=== PATIENT | female | born 1970 | race African-American/Black ===

== ENCOUNTER 2018-04-04 11:40 | Inpatient (IN) | payer MEDICARE, MEDICAID ==
[~2018-04-04] VITALS: Ht 165.1 cm; Wt 87.5 kg
[2018-04-04 14:30] VITALS: BP 153/109
[2018-04-04] MEDS ORDERED: ENTRESTO 24 MG1 EACH PO (17:07)
[2018-04-04] MEDS ORDERED: CARVEDILOL25 MG ORAL (17:07)
[2018-04-04] MEDS ORDERED: AMLODIPINE BESY10 MG ORAL (17:07)
--- NOTE | 2018-04-04 17:43 | History & Physical ---
History and Physical History & Physicial Dictated for Int Med-Dr Arceo no. [id number]. Be Morfin MD Apr 04, 2018 17:43
[2018-04-04] MEDS ORDERED: Flu Vaccine Quadrivalent 0.5ml IM ONE (18:00)
[2018-04-04] MEDS ORDERED: Albuterol ud Inhalation HHN PRN (18:00)
[2018-04-04] MEDS ORDERED: Pneumococcal Vaccine 25mcg/0.5ml IM ONE (18:00)
[2018-04-04] MEDS ORDERED: NS w/KCl 20mEq 1,000 ML IV SCH (18:53)
[2018-04-04] MEDS: Morphine Sulfate 4mg/ml Inj (IV USE ONLY) IVP PRN (18:56)
[2018-04-04] MEDS ORDERED: Azithromycin 500 MG in D5W 275 ML IV SCH (19:00)
[2018-04-04 19:36] LABS: BASOPHILS % (AUTO) 0.7 % (0.0-2.0); EOSINOPHILS % (AUTO) 1.6 % (0.0-3.0); HEMATOCRIT 31.7 % (37.0-47.0); HEMOGLOBIN 9.5 G/DL (12.0-16.0); LYMPHOCYTES % (AUTO) 21.5 % (20.0-45.0); MEAN CORPUSCULAR VOLUME 84 FL (80-99); MONOCYTES % (AUTO) 10.7 % (1.0-10.0); NEUTROPHILS % (AUTO) 65.5 % (45.0-75.0); PLATELET COUNT 194 K/UL (150-450); RED BLOOD COUNT 3.78 M/UL (4.20-5.40); RED CELL DISTRIBUTION WIDTH 16.8 % (11.6-14.8); WHITE BLOOD COUNT 5.2 K/UL (4.8-10.8)
[2018-04-04 20:11] LABS: ALANINE AMINOTRANSFERASE 35 U/L (12-78); ALBUMIN 2.6 G/DL (3.4-5.0); ALBUMIN/GLOBULIN RATIO 0.6 (1.0-2.7); ALKALINE PHOSPHATASE 89 U/L (46-116); ANION GAP 8 mmol/L (5-15); ASPARTATE AMINO TRANSFERASE 46 U/L (15-37); BILIRUBIN,TOTAL 0.3 MG/DL (0.2-1.0); BLOOD UREA NITROGEN 30 mg/dL (7-18); CALCIUM 8.1 MG/DL (8.5-10.1); CARBON DIOXIDE 30 MMOL/L (21-32); CHLORIDE 103 MMOL/L (98-107); CREATININE 2.5 MG/DL (0.55-1.30); POTASSIUM 2.9 MMOL/L (3.5-5.1); SODIUM 141 MMOL/L (136-145)
--- NOTE | 2018-04-04 20:21 | Consultation ---
History of Present Illness General Date patient seen: Apr 04, 2018 Reason for Consultation: incisional ventral hernia Present Illness HPI 47 year old female with multiple medical comorbidities presented to ED after having worsening cough. States began to have concerning cough and family called EMS. Currently admitted for care and management. Upon admission c/o incisional ventral hernia. surgery called to evaluate. patient seen, chart reviewed, patient examined. states first noted hernia 2 weeks ago. had colostomy 1.5 years ago and has been cared for since. was coughing 2 weeks ago when able to palpate ventral hernia. no n/v/f/c. no obstructive symptoms. understands she has hernia but unsure what to do about it. Allergies: Coded Allergies: SULFA (SULFONAMIDE ANTIBIOTICS) (Verified Allergy, Severe, 04/04/18) Medication History Scheduled Amlodipine Besylate* (Amlodipine Besylate*), 10 MG ORAL DAILY, (Reported) Carvedilol* (Carvedilol*), 25 MG ORAL EVERY 12 HOURS, (Reported) Sacubitril/Valsartan (Entresto 24 mg-26 mg Tablet), 1 EACH PO BID, (Reported) Patient History History Provided By: Patient, Medical Record, PMD Healthcare decision maker Resuscitation status Advanced Directive on File Past Medical/Surgical History Past Medical/Surgical History: (1) CHF (congestive heart failure) (2) Incisional hernia (3) Pneumonia, community acquired (4) Pneumonia, community acquired Review of Systems All Other Systems: negative except mentioned in HPI Physical Exam General Appearance: no apparent distress, alert Lines, tubes and drains: peripheral HEENT: normocephalic, mucous membranes moist Neck: normal inspection Respiratory/Chest: other Cardiovascular/Chest: normal peripheral pulses, regular rhythm Abdomen: soft, no organomegaly, no mass, hernia - reducible ventral hernia noted incisional from prior midline scar. Extremities: normal inspection Skin Exam: warm/dry Neurologic: rod buster helper II-XII grossly normal, alert Last 24 Hour Vital Signs Date Time Temp Pulse Resp B/P (MAP) Pulse Ox O2 Delivery O2 Flow Rate FiO2 04/04/18 18:56 98.4 04/04/18 15:16 Nasal Cannula 2.0 04/04/18 14:30 98.4 88 22 153/109 (124) 98.4 Laboratory Tests Test 04/04/18 19:30 White Blood Count 5.2 K/UL (4.8-10.8) Red Blood Count 3.78 M/UL (4.20-5.40) L Hemoglobin 9.5 G/DL (12.0-16.0) L Hematocrit 31.7 % (37.0-47.0) L Mean Corpuscular Volume 84 FL (80-99) Mean Corpuscular Hemoglobin 25.2 PG (27.0-31.0) L Mean Corpuscular Hemoglobin Concent 30.0 G/DL (32.0-36.0) L Red Cell Distribution Width 16.8 % (11.6-14.8) H Platelet Count 194 K/UL (150-450) Mean Platelet Volume 7.0 FL (6.5-10.1) Neutrophils (%) (Auto) 65.5 % (45.0-75.0) Lymphocytes (%) (Auto) 21.5 % (20.0-45.0) Monocytes (%) (Auto) 10.7 % (1.0-10.0) H Eosinophils (%) (Auto) 1.6 % (0.0-3.0) Basophils (%) (Auto) 0.7 % (0.0-2.0) Sodium Level 141 MMOL/L (136-145) Potassium Level 2.9 MMOL/L (3.5-5.1) L Chloride Level 103 MMOL/L (98-107) Carbon Dioxide Level 30 MMOL/L (21-32) Anion Gap 8 mmol/L (5-15) Blood Urea Nitrogen 30 mg/dL (7-18) H Creatinine 2.5 MG/DL (0.55-1.30) H Estimat Glomerular Filtration Rate 25.0 mL/min (>60) Glucose Level 113 MG/DL (74-106) H Calcium Level 8.1 MG/DL (8.5-10.1) L Total Bilirubin 0.3 MG/DL (0.2-1.0) Aspartate Amino Transf (AST/SGOT) 46 U/L (15-37) H Alanine Aminotransferase (ALT/SGPT) 35 U/L (12-78) Alkaline Phosphatase 89 U/L (46-116) Total Protein 7.2 G/DL (6.4-8.2) Albumin 2.6 G/DL (3.4-5.0) L Globulin 4.6 g/dL Albumin/Globulin Ratio 0.6 (1.0-2.7) L Height (Feet): 5 Height (Inches): 5.00 Weight (Pounds): 193 Medications Current Medications Medications (Trade) Dose Ordered Sig/Georges Route PRN Reason Start Time Stop Time Status Last Admin Dose Admin Acetaminophen (Tylenol) 650 mg Q4H PRN ORAL Mild Pain (Pain Scale 1-3) 04/04/18 18:00 05/04/18 17:59 Acetaminophen (Tylenol) 650 mg Q4H PRN ORAL fever 04/04/18 18:00 05/04/18 17:59 Albuterol Sulfate (Proventil) 2.5 mg Q4H PRN HHN Shortness of Breath 04/04/18 18:00 04/09/18 17:59 Amlodipine Besylate (Norvasc) 10 mg DAILY ORAL 04/05/18 09:00 05/05/18 08:59 Azithromycin 500 mg/Dextrose 275 ml @ 275 mls/hr Q24H IV 04/04/18 19:00 04/11/18 18:59 Carvedilol (Coreg) 25 mg EVERY 12 HOURS ORAL 04/04/18 21:00 05/04/18 20:59 Ceftriaxone Sodium 1 gm/ Dextrose 55 ml @ 110 mls/hr DAILY IV 04/05/18 09:00 04/12/18 08:59 Influenza Virus Vaccine Quadrival (Flu Vaccine Quadrivalent) 0.5 ml ONCE ONCE IM 04/04/18 18:00 04/04/18 18:01 UNV Morphine Sulfate (Morphine Sulfate) 2 mg Q4H PRN IVP Moderate Pain (Pain Scale 4-6) 04/04/18 18:00 04/11/18 17:59 Morphine Sulfate (Morphine Sulfate) 4 mg Q4H PRN IVP Severe Pain (Pain Scale 7-10) 04/04/18 18:00 04/11/18 17:59 04/04/18 18:56 Ondansetron HCl (Zofran) 4 mg Q4H PRN IVP Nausea & Vomiting 04/04/18 18:00 05/04/18 17:59 Pantoprazole (Protonix) 40 mg DAILY ORAL 04/05/18 09:00 05/05/18 08:59 Pneumococcal Polyvalent Vaccine (Pneumovax) 0.5 ml ONCE ONCE IM 04/04/18 18:00 04/04/18 18:01 UNV Sodium Chloride 1,000 ml @ 50 mls/hr Q20H IV 04/04/18 18:53 05/04/18 18:52 04/04/18 18:55 Temazepam (Restoril) 15 mg HSPRN PRN ORAL Insomnia 04/04/18 21:00 04/11/18 20:59 Assessment/Plan Problem List: (1) Incisional hernia Assessment & Plan: incisional ventral hernia from prior midline laparotomy incision bowel contents noted and reducible discussed findings with patient. discussed possible incarceration, strangulation, enlargement. discussed options. would recommend medical treatment of pna can repair electively if remains reducible office information given to patient thank you ICD Codes: K43.2 - Incisional hernia without obstruction or gangrene SNOMED: [id number] Qualifiers: Qualified Codes: K43.2 - Incisional hernia without obstruction or gangrene Status: stable Christiano Mccauley Apr 04, 2018 20:21
--- NOTE | 2018-04-04 20:30 | History and Physical Report ---
DATE OF ADMISSION: 04/04/2018 CHIEF COMPLAINT: The patient is a 47-year-old female, who presents with chief complaint of cough and hernia. HISTORY OF PRESENT ILLNESS: The patient has a history of Crohn's disease. The patient is status post colectomy with colostomy placement. The patient states she began to experience fever and chills two days ago. The patient also was having a cough, which is productive of yellowish sputum. The patient had shortness of breath. The patient also had pleuritic type chest pain. The patient also complained of headache. The patient initially presented to [facility] emergency room. A chest x-ray revealed right middle lobe pneumonia. The patient is admitted for right middle lobe pneumonia and incisional hernia. PAST MEDICAL HISTORY: Significant for 1. Crohn's disease. 2. Hypertension. 3. Congestive heart failure. 4. Incisional hernia. PAST SURGICAL HISTORY: Significant for 1. In 2014, colectomy and colostomy placement secondary to Crohn's disease. 2. Laparoscopic right oophorectomy. CURRENT MEDICATIONS: 1. Carvedilol 12.5 mg p.o. daily. 2. Entresto 24/26 mg 1 tablet p.o. twice daily. 3. Amlodipine 10 mg p.o. daily. ALLERGIES: Sulfa. SOCIAL HISTORY: The patient is single and lives alone. The patient admits to tobacco use of one-half pack per day. The patient denies alcohol use. REVIEW OF SYSTEMS: CONSTITUTIONAL: The patient complains of fever and chills as above. The patient denies weight loss. HEENT: The patient complains of headache as above. The patient denies ear or throat pain. CARDIOVASCULAR: The patient complains of pleuritic type chest pain as above. The patient denies chest pain. CHEST: The patient complains of shortness of breath and cough as above. ABDOMEN: The patient complains of incisional hernia as above. The patient denies nausea, vomiting, diarrhea, or constipation. GENITOURINARY: The patient denies dysuria or increased frequency of urination. NEUROMUSCULAR: The patient denies seizures or generalized weakness. PHYSICAL EXAMINATION: GENERAL: The patient is a well-developed and well-nourished female, in no apparent distress. VITAL SIGNS: Temperature 98.8 degrees, respirations 21, blood pressure 154/101 and pulse 93. HEENT: Eyes, pupils equal and responsive to light and accommodation. Extraocular movements are intact. NECK: Supple without lymphadenopathy. CHEST: Few scattered crackles in the right lung field, otherwise clear to auscultation without wheezes or rales. CARDIOVASCULAR: Regular rate. S1 and S2 are normal without murmurs, rubs, or gallops. ABDOMEN: Soft, nontender, and nondistended. Positive bowel sounds. No evidence of hepatosplenomegaly. Currently, no rebound or guarding noted. EXTREMITIES: Negative for clubbing, cyanosis, or edema. RECTAL: Refused. GENITAL: Refused. NEUROLOGIC: Cranial nerves II through XII are grossly intact without focal deficits. Motor strength is 5/5 bilaterally. Deep tendon reflexes are 2+ plantar. LABORATORY AND DIAGNOSTIC DATA: Laboratory studies from [place], sodium 139, potassium 3.1, chloride 102, CO2 27, BUN 27, creatinine 2.43 and glucose 97. WBC 9.2, hemoglobin 10.6, hematocrit 32.9 and platelets 211,000. Chest x-ray revealed right middle lobe consolidation. BNP greater than 5000. Troponin 0.05. ASSESSMENT: This is a 47-year-old female 1. Right middle lobe pneumonia. 2. Incisional hernia. 3. Congestive heart failure. 4. Hypertension. 5. Crohn's disease. 6. Renal failure. TREATMENT: 1. Right middle lobe pneumonia. The patient has been started empirically on ceftriaxone and azithromycin. A Pulmonary consultation obtained with Dr. Jeanna Andrade. We will follow recommendation of Pulmonary. 2. Incisional hernia. A General Surgery consultation obtained with Dr. Mccauley. 3. Congestive heart failure. Cardiology consultation obtained with Dr. Kev Wall. We will follow recommendation of Cardiology. Serial troponin levels will be performed. Differential includes acute myocardial infarction versus acute on chronic congestive heart failure. 4. Hypertension. Continue Coreg as above. 5. Crohn's disease. A Gastroenterology consultation obtained with Dr. Abhijit Dillon. 6. Renal failure. A Nephrology consultation obtained with Dr. Garcia. Be Morfin M.D. DR: GARTH JOB#: [id number] CC:
[2018-04-04] MEDS: Carvedilol 25mg Tab ORAL SCH (21:05)
[2018-04-05] VITALS: BP 138/86
[2018-04-05] MEDS: Morphine Sulfate 4mg/ml Inj (IV USE ONLY) IVP PRN (00:39)
[2018-04-05 00:45] LABS: BILIRUBIN, URINE NEGATIVE (NEGATIVE); COLOR,URINE PALE YELLOW; GLUCOSE, URINE (UA) NEGATIVE (NEGATIVE); KETONES,URINE NEGATIVE (NEGATIVE); LEUKOCYTE ESTERASE ,URINE 3+ (NEGATIVE); NITRITE,URINE NEGATIVE (NEGATIVE); PH,URINE 5 (4.5-8.0); PROTEIN,URINE 3+ (NEGATIVE); UROBILINOGEN,URINE NORMAL MG/DL (0.0-1.0)
[2018-04-05 00:52] LABS: APPEARANCE,URINE CLOUDY
[2018-04-05 04:08] VITALS: BP 138/94
[2018-04-05 04:26] LABS: ANION GAP 9 mmol/L (5-15); BLOOD UREA NITROGEN 31 mg/dL (7-18); CALCIUM 7.9 MG/DL (8.5-10.1); CARBON DIOXIDE 29 MMOL/L (21-32); CHLORIDE 102 MMOL/L (98-107); CREATININE 2.8 MG/DL (0.55-1.30); SODIUM 140 MMOL/L (136-145)
[2018-04-05 04:34] LABS: BASOPHILS % (AUTO) 0.9 % (0.0-2.0); EOSINOPHILS % (AUTO) 2.7 % (0.0-3.0); HEMATOCRIT 32.7 % (37.0-47.0); HEMOGLOBIN 10.1 G/DL (12.0-16.0); LYMPHOCYTES % (AUTO) 25.7 % (20.0-45.0); MEAN CORPUSCULAR VOLUME 84 FL (80-99); MONOCYTES % (AUTO) 9.7 % (1.0-10.0); PLATELET COUNT 176 K/UL (150-450); RED BLOOD COUNT 3.89 M/UL (4.20-5.40); RED CELL DISTRIBUTION WIDTH 16.8 % (11.6-14.8); WHITE BLOOD COUNT 4.5 K/UL (4.8-10.8)
[2018-04-05 08:00] VITALS: BP 139/93
[2018-04-05] MEDS: cefTRIAXone 1 GM in D5W 55 ML IV SCH (08:27)
[2018-04-05] MEDS: Carvedilol 25mg Tab ORAL SCH ×2 (08:27→20:56)
--- NOTE | 2018-04-05 10:39 | Cardiac Electrophysiology PN ---
Subjective Subjective [id number] Objective Last 24 Hour Vital Signs Date Time Temp Pulse Resp B/P (MAP) Pulse Ox O2 Delivery O2 Flow Rate FiO2 04/05/18 08:30 Room Air 04/05/18 08:27 77 139/93 04/05/18 08:26 77 139/93 04/05/18 08:00 98.8 77 18 139/93 (108) 99 98.8 04/05/18 04:08 96.6 78 19 138/94 (109) 92 96.6 04/05/18 00:00 98.0 79 18 138/86 (103) 95 98.0 04/04/18 21:05 88 153/109 04/04/18 21:00 Room Air 04/04/18 18:56 98.4 04/04/18 15:16 Nasal Cannula 2.0 04/04/18 14:30 98.4 88 22 153/109 (124) 98.4 Intake and Output 04/04/18 04/05/18 19:00 07:00 Intake Total 480 ml 1175 ml Balance 480 ml 1175 ml Intake Oral 480 ml 350 ml IV Total 825 ml # Voids 3 # Bowel Movements 1 Laboratory Tests Test 04/04/18 19:30 04/05/18 00:20 04/05/18 03:50 White Blood Count 5.2 K/UL (4.8-10.8) 4.5 K/UL (4.8-10.8) L Red Blood Count 3.78 M/UL (4.20-5.40) L 3.89 M/UL (4.20-5.40) L Hemoglobin 9.5 G/DL (12.0-16.0) L 10.1 G/DL (12.0-16.0) L Hematocrit 31.7 % (37.0-47.0) L 32.7 % (37.0-47.0) L Mean Corpuscular Volume 84 FL (80-99) 84 FL (80-99) Mean Corpuscular Hemoglobin 25.2 PG (27.0-31.0) L 26.0 PG (27.0-31.0) L Mean Corpuscular Hemoglobin Concent 30.0 G/DL (32.0-36.0) L 31.0 G/DL (32.0-36.0) L Red Cell Distribution Width 16.8 % (11.6-14.8) H 16.8 % (11.6-14.8) H Platelet Count 194 K/UL (150-450) 176 K/UL (150-450) Mean Platelet Volume 7.0 FL (6.5-10.1) 7.0 FL (6.5-10.1) Neutrophils (%) (Auto) 65.5 % (45.0-75.0) 61.0 % (45.0-75.0) Lymphocytes (%) (Auto) 21.5 % (20.0-45.0) 25.7 % (20.0-45.0) Monocytes (%) (Auto) 10.7 % (1.0-10.0) H 9.7 % (1.0-10.0) Eosinophils (%) (Auto) 1.6 % (0.0-3.0) 2.7 % (0.0-3.0) Basophils (%) (Auto) 0.7 % (0.0-2.0) 0.9 % (0.0-2.0) Sodium Level 141 MMOL/L (136-145) 140 MMOL/L (136-145) Potassium Level 2.9 MMOL/L (3.5-5.1) L 3.0 MMOL/L (3.5-5.1) L Chloride Level 103 MMOL/L (98-107) 102 MMOL/L (98-107) Carbon Dioxide Level 30 MMOL/L (21-32) 29 MMOL/L (21-32) Anion Gap 8 mmol/L (5-15) 9 mmol/L (5-15) Blood Urea Nitrogen 30 mg/dL (7-18) H 31 mg/dL (7-18) H Creatinine 2.5 MG/DL (0.55-1.30) H 2.8 MG/DL (0.55-1.30) H Estimat Glomerular Filtration Rate 25.0 mL/min (>60) 21.8 mL/min (>60) Glucose Level 113 MG/DL (74-106) H 116 MG/DL (74-106) H Calcium Level 8.1 MG/DL (8.5-10.1) L 7.9 MG/DL (8.5-10.1) L Total Bilirubin 0.3 MG/DL (0.2-1.0) Aspartate Amino Transf (AST/SGOT) 46 U/L (15-37) H Alanine Aminotransferase (ALT/SGPT) 35 U/L (12-78) Alkaline Phosphatase 89 U/L (46-116) Total Protein 7.2 G/DL (6.4-8.2) Albumin 2.6 G/DL (3.4-5.0) L Globulin 4.6 g/dL Albumin/Globulin Ratio 0.6 (1.0-2.7) L Urine Color Pale yellow Urine Appearance Cloudy Urine pH 5 (4.5-8.0) Urine Specific [place] 1.020 (1.005-1.035) Urine Protein 3+ (NEGATIVE) H Urine Glucose (UA) Negative (NEGATIVE) Urine Ketones Negative (NEGATIVE) Urine Blood 3+ (NEGATIVE) H Urine Nitrite Negative (NEGATIVE) Urine Bilirubin Negative (NEGATIVE) Urine Urobilinogen Normal MG/DL (0.0-1.0) Urine Leukocyte Esterase 3+ (NEGATIVE) H Urine RBC 5-10 /HPF (0 - 2) H Urine WBC Tntc /HPF (0 - 2) H Urine Squamous Epithelial Cells Many /LPF (NONE/OCC) H Urine Bacteria Moderate /HPF (NONE) H Vancomycin Level Trough < 2.0 ug/mL (5.0-12.0) Kev Santos MD Apr 05, 2018 10:39
--- NOTE | 2018-04-05 10:49 | Diagnostic Imaging Report ---
Indication: Cough Comparison: None A single view chest radiograph was obtained. Findings: Mild interstitial edema may be present. Correlate clinically. There are reticular densities and prominent vascularity and heart size noted. Bones are unremarkable. IMPRESSION: Query mild CHF
[2018-04-05 12:00] VITALS: BP 147/101
--- NOTE | 2018-04-05 12:26 | Consultation ---
History of Present Illness General Date patient seen: Apr 05, 2018 Reason for Consultation: incisional ventral hernia Present Illness HPI 47-year-old female, who presents with chief complaint of cough and hernia. The pt has anxiety and insomnia. the pt is c/o fatigue during the day. the pt stated that Restoril was not working. Allergies: Coded Allergies: SULFA (SULFONAMIDE ANTIBIOTICS) (Verified Allergy, Severe, 04/04/18) Medication History Scheduled Amlodipine Besylate* (Amlodipine Besylate*), 10 MG ORAL DAILY, (Reported) Carvedilol* (Carvedilol*), 25 MG ORAL EVERY 12 HOURS, (Reported) Sacubitril/Valsartan (Entresto 24 mg-26 mg Tablet), 1 EACH PO BID, (Reported) Patient History Limited by: medical condition History Provided By: Patient, Medical Record, PMD Healthcare decision maker Resuscitation status Advanced Directive on File Past Medical/Surgical History Past Medical/Surgical History: (1) CHF (congestive heart failure) (2) Pneumonia, community acquired (3) Pneumonia, community acquired (4) Incisional hernia Review of Systems Psychiatric: Reports: prior hx, anxiety, depressed feelings, emotional problems Physical Exam General Appearance: no apparent distress, alert Neurologic: oriented x 3, responsive, depressed affect Last 24 Hour Vital Signs Date Time Temp Pulse Resp B/P (MAP) Pulse Ox O2 Delivery O2 Flow Rate FiO2 04/05/18 12:00 98.0 75 18 147/101 (116) 98 98.0 04/05/18 10:59 75 20 Room Air 04/05/18 08:30 Room Air 04/05/18 08:27 77 139/93 04/05/18 08:26 77 139/93 04/05/18 08:00 98.8 77 18 139/93 (108) 99 98.8 04/05/18 04:08 96.6 78 19 138/94 (109) 92 96.6 04/05/18 00:00 98.0 79 18 138/86 (103) 95 98.0 04/04/18 21:05 88 153/109 04/04/18 21:00 Room Air 04/04/18 18:56 98.4 04/04/18 15:16 Nasal Cannula 2.0 04/04/18 14:30 98.4 88 22 153/109 (124) 98.4 Intake and Output 04/04/18 04/05/18 19:00 07:00 Intake Total 480 ml 1175 ml Balance 480 ml 1175 ml Intake Oral 480 ml 350 ml IV Total 825 ml # Voids 3 # Bowel Movements 1 Laboratory Tests Test 04/04/18 19:30 04/05/18 00:20 04/05/18 03:50 White Blood Count 5.2 K/UL (4.8-10.8) 4.5 K/UL (4.8-10.8) L Red Blood Count 3.78 M/UL (4.20-5.40) L 3.89 M/UL (4.20-5.40) L Hemoglobin 9.5 G/DL (12.0-16.0) L 10.1 G/DL (12.0-16.0) L Hematocrit 31.7 % (37.0-47.0) L 32.7 % (37.0-47.0) L Mean Corpuscular Volume 84 FL (80-99) 84 FL (80-99) Mean Corpuscular Hemoglobin 25.2 PG (27.0-31.0) L 26.0 PG (27.0-31.0) L Mean Corpuscular Hemoglobin Concent 30.0 G/DL (32.0-36.0) L 31.0 G/DL (32.0-36.0) L Red Cell Distribution Width 16.8 % (11.6-14.8) H 16.8 % (11.6-14.8) H Platelet Count 194 K/UL (150-450) 176 K/UL (150-450) Mean Platelet Volume 7.0 FL (6.5-10.1) 7.0 FL (6.5-10.1) Neutrophils (%) (Auto) 65.5 % (45.0-75.0) 61.0 % (45.0-75.0) Lymphocytes (%) (Auto) 21.5 % (20.0-45.0) 25.7 % (20.0-45.0) Monocytes (%) (Auto) 10.7 % (1.0-10.0) H 9.7 % (1.0-10.0) Eosinophils (%) (Auto) 1.6 % (0.0-3.0) 2.7 % (0.0-3.0) Basophils (%) (Auto) 0.7 % (0.0-2.0) 0.9 % (0.0-2.0) Sodium Level 141 MMOL/L (136-145) 140 MMOL/L (136-145) Potassium Level 2.9 MMOL/L (3.5-5.1) L 3.0 MMOL/L (3.5-5.1) L Chloride Level 103 MMOL/L (98-107) 102 MMOL/L (98-107) Carbon Dioxide Level 30 MMOL/L (21-32) 29 MMOL/L (21-32) Anion Gap 8 mmol/L (5-15) 9 mmol/L (5-15) Blood Urea Nitrogen 30 mg/dL (7-18) H 31 mg/dL (7-18) H Creatinine 2.5 MG/DL (0.55-1.30) H 2.8 MG/DL (0.55-1.30) H Estimat Glomerular Filtration Rate 25.0 mL/min (>60) 21.8 mL/min (>60) Glucose Level 113 MG/DL (74-106) H 116 MG/DL (74-106) H Calcium Level 8.1 MG/DL (8.5-10.1) L 7.9 MG/DL (8.5-10.1) L Total Bilirubin 0.3 MG/DL (0.2-1.0) Aspartate Amino Transf (AST/SGOT) 46 U/L (15-37) H Alanine Aminotransferase (ALT/SGPT) 35 U/L (12-78) Alkaline Phosphatase 89 U/L (46-116) Total Protein 7.2 G/DL (6.4-8.2) Albumin 2.6 G/DL (3.4-5.0) L Globulin 4.6 g/dL Albumin/Globulin Ratio 0.6 (1.0-2.7) L Urine Color Pale yellow Urine Appearance Cloudy Urine pH 5 (4.5-8.0) Urine Specific [place] 1.020 (1.005-1.035) Urine Protein 3+ (NEGATIVE) H Urine Glucose (UA) Negative (NEGATIVE) Urine Ketones Negative (NEGATIVE) Urine Blood 3+ (NEGATIVE) H Urine Nitrite Negative (NEGATIVE) Urine Bilirubin Negative (NEGATIVE) Urine Urobilinogen Normal MG/DL (0.0-1.0) Urine Leukocyte Esterase 3+ (NEGATIVE) H Urine RBC 5-10 /HPF (0 - 2) H Urine WBC Tntc /HPF (0 - 2) H Urine Squamous Epithelial Cells Many /LPF (NONE/OCC) H Urine Bacteria Moderate /HPF (NONE) H Vancomycin Level Trough < 2.0 ug/mL (5.0-12.0) L Height (Feet): 5 Height (Inches): 5.00 Weight (Pounds): 193 Medications Current Medications Medications (Trade) Dose Ordered Sig/Georges Route PRN Reason Start Time Stop Time Status Last Admin Dose Admin Acetaminophen (Tylenol) 650 mg Q4H PRN ORAL Mild Pain (Pain Scale 1-3) 04/04/18 18:00 05/04/18 17:59 04/05/18 09:48 Acetaminophen (Tylenol) 650 mg Q4H PRN ORAL fever 04/04/18 18:00 05/04/18 17:59 Albuterol Sulfate (Proventil) 2.5 mg Q4H PRN HHN Shortness of Breath 04/04/18 18:00 04/09/18 17:59 Amlodipine Besylate (Norvasc) 10 mg DAILY ORAL 04/05/18 09:00 05/05/18 08:59 04/05/18 08:26 Azithromycin 500 mg/Dextrose 275 ml @ 275 mls/hr Q24H IV 04/04/18 19:00 04/11/18 18:59 04/04/18 21:04 Carvedilol (Coreg) 25 mg EVERY 12 HOURS ORAL 04/04/18 21:00 05/04/18 20:59 04/05/18 08:27 Ceftriaxone Sodium 1 gm/ Dextrose 55 ml @ 110 mls/hr DAILY IV 04/05/18 09:00 04/12/18 08:59 04/05/18 08:27 Mirtazapine (Remeron) 7.5 mg QHS ORAL 04/05/18 21:00 05/05/18 20:59 Morphine Sulfate (Morphine Sulfate) 2 mg Q4H PRN IVP Moderate Pain (Pain Scale 4-6) 04/04/18 18:00 04/11/18 17:59 Morphine Sulfate (Morphine Sulfate) 4 mg Q4H PRN IVP Severe Pain (Pain Scale 7-10) 04/04/18 18:00 04/11/18 17:59 04/05/18 00:39 Ondansetron HCl (Zofran) 4 mg Q4H PRN IVP Nausea & Vomiting 04/04/18 18:00 05/04/18 17:59 Pantoprazole (Protonix) 40 mg DAILY ORAL 04/05/18 09:00 05/05/18 08:59 04/05/18 08:26 Sodium Chloride 1,000 ml @ 50 mls/hr Q20H IV 04/04/18 18:53 05/04/18 18:52 04/04/18 18:55 Temazepam (Restoril) 15 mg HSPRN PRN ORAL Insomnia 04/04/18 21:00 04/11/18 20:59 Assessment/Plan Assessment/Plan Anxiety d/o Insomnia dc restoril start remeron left script in chart Andrew Mosley MD Apr 05, 2018 12:26
--- NOTE | 2018-04-05 13:39 | Consultation ---
History of Present Illness General Date patient seen: Apr 05, 2018 Reason for Consultation: incisional ventral hernia Present Illness HPI 47 year old female with hx of Crohn disease, CHF, presented to [facility] with CC of productive cough and SOB, fevers. She was diagnosed to have pneumonia and possible sepsis and transferred to [facility] for further care. Pt looks comfortable, non-septic with occasional cough. Allergies: Coded Allergies: SULFA (SULFONAMIDE ANTIBIOTICS) (Verified Allergy, Severe, 04/04/18) Medication History Scheduled Amlodipine Besylate* (Amlodipine Besylate*), 10 MG ORAL DAILY, (Reported) Carvedilol* (Carvedilol*), 25 MG ORAL EVERY 12 HOURS, (Reported) Sacubitril/Valsartan (Entresto 24 mg-26 mg Tablet), 1 EACH PO BID, (Reported) Patient History Healthcare decision maker Resuscitation status Advanced Directive on File Past Medical/Surgical History Past Medical/Surgical History: (1) Crohn disease (2) CHF (congestive heart failure) Review of Systems All Other Systems: negative except mentioned in HPI Physical Exam General Appearance: WD/WN Lines, tubes and drains: central line Neck: non-tender, supple Respiratory/Chest: chest wall non-tender, lungs clear Breasts: no masses Cardiovascular/Chest: normal rate Abdomen: normal bowel sounds, non tender Genitourinary/Rectal: normal genital exam, normal rectal exam Last 24 Hour Vital Signs Date Time Temp Pulse Resp B/P (MAP) Pulse Ox O2 Delivery O2 Flow Rate FiO2 04/05/18 12:00 98.0 75 18 147/101 (116) 98 98.0 04/05/18 10:59 75 20 Room Air 04/05/18 08:30 Room Air 04/05/18 08:27 77 139/93 04/05/18 08:26 77 139/93 04/05/18 08:00 98.8 77 18 139/93 (108) 99 98.8 04/05/18 04:08 96.6 78 19 138/94 (109) 92 96.6 04/05/18 00:00 98.0 79 18 138/86 (103) 95 98.0 04/04/18 21:05 88 153/109 04/04/18 21:00 Room Air 04/04/18 18:56 98.4 04/04/18 15:16 Nasal Cannula 2.0 04/04/18 14:30 98.4 88 22 153/109 (124) 98.4 Intake and Output 04/04/18 04/05/18 19:00 07:00 Intake Total 480 ml 1175 ml Balance 480 ml 1175 ml Intake Oral 480 ml 350 ml IV Total 825 ml # Voids 3 # Bowel Movements 1 Laboratory Tests Test 04/04/18 19:30 04/05/18 00:20 04/05/18 03:50 White Blood Count 5.2 K/UL (4.8-10.8) 4.5 K/UL (4.8-10.8) L Red Blood Count 3.78 M/UL (4.20-5.40) L 3.89 M/UL (4.20-5.40) L Hemoglobin 9.5 G/DL (12.0-16.0) L 10.1 G/DL (12.0-16.0) L Hematocrit 31.7 % (37.0-47.0) L 32.7 % (37.0-47.0) L Mean Corpuscular Volume 84 FL (80-99) 84 FL (80-99) Mean Corpuscular Hemoglobin 25.2 PG (27.0-31.0) L 26.0 PG (27.0-31.0) L Mean Corpuscular Hemoglobin Concent 30.0 G/DL (32.0-36.0) L 31.0 G/DL (32.0-36.0) L Red Cell Distribution Width 16.8 % (11.6-14.8) H 16.8 % (11.6-14.8) H Platelet Count 194 K/UL (150-450) 176 K/UL (150-450) Mean Platelet Volume 7.0 FL (6.5-10.1) 7.0 FL (6.5-10.1) Neutrophils (%) (Auto) 65.5 % (45.0-75.0) 61.0 % (45.0-75.0) Lymphocytes (%) (Auto) 21.5 % (20.0-45.0) 25.7 % (20.0-45.0) Monocytes (%) (Auto) 10.7 % (1.0-10.0) H 9.7 % (1.0-10.0) Eosinophils (%) (Auto) 1.6 % (0.0-3.0) 2.7 % (0.0-3.0) Basophils (%) (Auto) 0.7 % (0.0-2.0) 0.9 % (0.0-2.0) Sodium Level 141 MMOL/L (136-145) 140 MMOL/L (136-145) Potassium Level 2.9 MMOL/L (3.5-5.1) L 3.0 MMOL/L (3.5-5.1) L Chloride Level 103 MMOL/L (98-107) 102 MMOL/L (98-107) Carbon Dioxide Level 30 MMOL/L (21-32) 29 MMOL/L (21-32) Anion Gap 8 mmol/L (5-15) 9 mmol/L (5-15) Blood Urea Nitrogen 30 mg/dL (7-18) H 31 mg/dL (7-18) H Creatinine 2.5 MG/DL (0.55-1.30) H 2.8 MG/DL (0.55-1.30) H Estimat Glomerular Filtration Rate 25.0 mL/min (>60) 21.8 mL/min (>60) Glucose Level 113 MG/DL (74-106) H 116 MG/DL (74-106) H Calcium Level 8.1 MG/DL (8.5-10.1) L 7.9 MG/DL (8.5-10.1) L Total Bilirubin 0.3 MG/DL (0.2-1.0) Aspartate Amino Transf (AST/SGOT) 46 U/L (15-37) H Alanine Aminotransferase (ALT/SGPT) 35 U/L (12-78) Alkaline Phosphatase 89 U/L (46-116) Total Protein 7.2 G/DL (6.4-8.2) Albumin 2.6 G/DL (3.4-5.0) L Globulin 4.6 g/dL Albumin/Globulin Ratio 0.6 (1.0-2.7) L Urine Color Pale yellow Urine Appearance Cloudy Urine pH 5 (4.5-8.0) Urine Specific [place] 1.020 (1.005-1.035) Urine Protein 3+ (NEGATIVE) H Urine Glucose (UA) Negative (NEGATIVE) Urine Ketones Negative (NEGATIVE) Urine Blood 3+ (NEGATIVE) H Urine Nitrite Negative (NEGATIVE) Urine Bilirubin Negative (NEGATIVE) Urine Urobilinogen Normal MG/DL (0.0-1.0) Urine Leukocyte Esterase 3+ (NEGATIVE) H Urine RBC 5-10 /HPF (0 - 2) H Urine WBC Tntc /HPF (0 - 2) H Urine Squamous Epithelial Cells Many /LPF (NONE/OCC) H Urine Bacteria Moderate /HPF (NONE) H Vancomycin Level Trough < 2.0 ug/mL (5.0-12.0) L Height (Feet): 5 Height (Inches): 5.00 Weight (Pounds): 193 Medications Current Medications Medications (Trade) Dose Ordered Sig/Georges Route PRN Reason Start Time Stop Time Status Last Admin Dose Admin Acetaminophen (Tylenol) 650 mg Q4H PRN ORAL Mild Pain (Pain Scale 1-3) 04/04/18 18:00 05/04/18 17:59 04/05/18 09:48 Acetaminophen (Tylenol) 650 mg Q4H PRN ORAL fever 04/04/18 18:00 05/04/18 17:59 Albuterol Sulfate (Proventil) 2.5 mg Q4H PRN HHN Shortness of Breath 04/04/18 18:00 04/09/18 17:59 Amlodipine Besylate (Norvasc) 10 mg DAILY ORAL 04/05/18 09:00 05/05/18 08:59 04/05/18 08:26 Azithromycin 500 mg/Dextrose 275 ml @ 275 mls/hr Q24H IV 04/04/18 19:00 04/11/18 18:59 04/04/18 21:04 Carvedilol (Coreg) 25 mg EVERY 12 HOURS ORAL 04/04/18 21:00 05/04/18 20:59 04/05/18 08:27 Ceftriaxone Sodium 1 gm/ Dextrose 55 ml @ 110 mls/hr DAILY IV 04/05/18 09:00 04/12/18 08:59 04/05/18 08:27 Mirtazapine (Remeron) 7.5 mg QHS ORAL 04/05/18 21:00 05/05/18 20:59 Morphine Sulfate (Morphine Sulfate) 2 mg Q4H PRN IVP Moderate Pain (Pain Scale 4-6) 04/04/18 18:00 04/11/18 17:59 Morphine Sulfate (Morphine Sulfate) 4 mg Q4H PRN IVP Severe Pain (Pain Scale 7-10) 04/04/18 18:00 04/11/18 17:59 04/05/18 00:39 Ondansetron HCl (Zofran) 4 mg Q4H PRN IVP Nausea & Vomiting 04/04/18 18:00 05/04/18 17:59 Pantoprazole (Protonix) 40 mg DAILY ORAL 04/05/18 09:00 05/05/18 08:59 04/05/18 08:26 Sodium Chloride 1,000 ml @ 50 mls/hr Q20H IV 04/04/18 18:53 05/04/18 18:52 04/04/18 18:55 Temazepam (Restoril) 15 mg HSPRN PRN ORAL Insomnia 04/04/18 21:00 04/11/18 20:59 Assessment/Plan Problem List: (1) Pneumonia, community acquired ICD Codes: J18.9 - Pneumonia, unspecified organism SNOMED: 850108090 (2) Incisional hernia ICD Codes: K43.2 - Incisional hernia without obstruction or gangrene SNOMED: 090218630 Qualifiers: Qualified Codes: K43.2 - Incisional hernia without obstruction or gangrene (3) Crohn disease ICD Codes: K50.90 - Crohn's disease, unspecified, without complications SNOMED: 84283212 (4) CHF (congestive heart failure) ICD Codes: I50.9 - Heart failure, unspecified SNOMED: 60340354 Assessment/Plan check sputum respiratory treatment chest PT ID evaluation cxr in a few dasy dvt prophylaxis. surgery to evaluate the abdominal hernia. f/u labs and WBC Jeanna Andrade MD Apr 05, 2018 13:39
--- NOTE | 2018-04-05 14:04 | General Surgery Progress Note ---
General Surgery-Progress Note Subjective Additional Comments no acute events. doing well. resting comfortable. no n/v/f/c. no pain Objective Last 24 Hour Vital Signs Date Time Temp Pulse Resp B/P (MAP) Pulse Ox O2 Delivery O2 Flow Rate FiO2 04/05/18 12:00 98.0 75 18 147/101 (116) 98 98.0 04/05/18 10:59 75 20 Room Air 04/05/18 08:30 Room Air 04/05/18 08:27 77 139/93 04/05/18 08:26 77 139/93 04/05/18 08:00 98.8 77 18 139/93 (108) 99 98.8 04/05/18 04:08 96.6 78 19 138/94 (109) 92 96.6 04/05/18 00:00 98.0 79 18 138/86 (103) 95 98.0 04/04/18 21:05 88 153/109 04/04/18 21:00 Room Air 04/04/18 18:56 98.4 04/04/18 15:16 Nasal Cannula 2.0 04/04/18 14:30 98.4 88 22 153/109 (124) 98.4 I&O Intake and Output 04/04/18 04/05/18 19:00 07:00 Intake Total 480 ml 1225 ml Balance 480 ml 1225 ml Intake Oral 480 ml 350 ml IV Total 875 ml # Voids 3 # Bowel Movements 1 Drains: other Cardiovascular: RSR Respiratory: clear Abdomen: soft, flat, non-tender, present bowel sounds Extremities: no edema, no tenderness, no cyanosis Laboratory Tests Test 04/04/18 19:30 04/05/18 00:20 04/05/18 03:50 White Blood Count 5.2 K/UL (4.8-10.8) 4.5 K/UL (4.8-10.8) L Red Blood Count 3.78 M/UL (4.20-5.40) L 3.89 M/UL (4.20-5.40) L Hemoglobin 9.5 G/DL (12.0-16.0) L 10.1 G/DL (12.0-16.0) L Hematocrit 31.7 % (37.0-47.0) L 32.7 % (37.0-47.0) L Mean Corpuscular Volume 84 FL (80-99) 84 FL (80-99) Mean Corpuscular Hemoglobin 25.2 PG (27.0-31.0) L 26.0 PG (27.0-31.0) L Mean Corpuscular Hemoglobin Concent 30.0 G/DL (32.0-36.0) L 31.0 G/DL (32.0-36.0) L Red Cell Distribution Width 16.8 % (11.6-14.8) H 16.8 % (11.6-14.8) H Platelet Count 194 K/UL (150-450) 176 K/UL (150-450) Mean Platelet Volume 7.0 FL (6.5-10.1) 7.0 FL (6.5-10.1) Neutrophils (%) (Auto) 65.5 % (45.0-75.0) 61.0 % (45.0-75.0) Lymphocytes (%) (Auto) 21.5 % (20.0-45.0) 25.7 % (20.0-45.0) Monocytes (%) (Auto) 10.7 % (1.0-10.0) H 9.7 % (1.0-10.0) Eosinophils (%) (Auto) 1.6 % (0.0-3.0) 2.7 % (0.0-3.0) Basophils (%) (Auto) 0.7 % (0.0-2.0) 0.9 % (0.0-2.0) Sodium Level 141 MMOL/L (136-145) 140 MMOL/L (136-145) Potassium Level 2.9 MMOL/L (3.5-5.1) L 3.0 MMOL/L (3.5-5.1) L Chloride Level 103 MMOL/L (98-107) 102 MMOL/L (98-107) Carbon Dioxide Level 30 MMOL/L (21-32) 29 MMOL/L (21-32) Anion Gap 8 mmol/L (5-15) 9 mmol/L (5-15) Blood Urea Nitrogen 30 mg/dL (7-18) H 31 mg/dL (7-18) H Creatinine 2.5 MG/DL (0.55-1.30) H 2.8 MG/DL (0.55-1.30) H Estimat Glomerular Filtration Rate 25.0 mL/min (>60) 21.8 mL/min (>60) Glucose Level 113 MG/DL (74-106) H 116 MG/DL (74-106) H Calcium Level 8.1 MG/DL (8.5-10.1) L 7.9 MG/DL (8.5-10.1) L Total Bilirubin 0.3 MG/DL (0.2-1.0) Aspartate Amino Transf (AST/SGOT) 46 U/L (15-37) H Alanine Aminotransferase (ALT/SGPT) 35 U/L (12-78) Alkaline Phosphatase 89 U/L (46-116) Total Protein 7.2 G/DL (6.4-8.2) Albumin 2.6 G/DL (3.4-5.0) L Globulin 4.6 g/dL Albumin/Globulin Ratio 0.6 (1.0-2.7) L Urine Color Pale yellow Urine Appearance Cloudy Urine pH 5 (4.5-8.0) Urine Specific [place] 1.020 (1.005-1.035) Urine Protein 3+ (NEGATIVE) H Urine Glucose (UA) Negative (NEGATIVE) Urine Ketones Negative (NEGATIVE) Urine Blood 3+ (NEGATIVE) H Urine Nitrite Negative (NEGATIVE) Urine Bilirubin Negative (NEGATIVE) Urine Urobilinogen Normal MG/DL (0.0-1.0) Urine Leukocyte Esterase 3+ (NEGATIVE) H Urine RBC 5-10 /HPF (0 - 2) H Urine WBC Tntc /HPF (0 - 2) H Urine Squamous Epithelial Cells Many /LPF (NONE/OCC) H Urine Bacteria Moderate /HPF (NONE) H Uric Acid Pending Total Creatine Kinase Pending Vancomycin Level Trough < 2.0 ug/mL (5.0-12.0) L Plan Problems: (1) Incisional hernia Assessment & Plan: incisional ventral hernia from prior midline laparotomy incision bowel contents noted and reducible discussed findings with patient. discussed possible incarceration, strangulation, enlargement. discussed options. would recommend medical treatment of pna can repair electively if remains reducible office information given to patient thank you Christiano Mcaculey Apr 05, 2018 14:04
[2018-04-05 14:13] LABS: CREATINE KINASE 149 U/L (26-308)
--- NOTE | 2018-04-05 14:42 | Cardiology Report ---
APPROVED REPORT EXAM: Two-dimensional and M-mode echocardiogram with Doppler and color Doppler. INDICATION Congestive Heart Failure M-Mode DIMENSIONS IVSd1.5 (0.7-1.1cm)Left Atrium (MM)4.3 (1.6-4.0cm) LVDd7.5 (3.5-5.6cm)Aortic Root3.9 (2.0-3.7cm) PWd1.4 (0.7-1.1cm)Aortic Cusp Exc.2.1 (1.5-2.0cm) LVDs6.5 (2.5-4.0cm) PWs1.4 cm Severe left ventricular enlargement. Severe global left ventricular hypokinesis. Left ventricular ejection fraction estimated to be 15-20 %. Mild left ventricular hypertrophy. Small posterior pericardial effusion. Moderate left atrial enlargement. Mild right atrial enlargement. Mild right ventricular enlargement. Mild focal aortic valve sclerosis with adequate cusp excursion. Mild aortic root dilatation. Thickened mitral valve leaflets with normal excursion. Mitral annulus and aortic root calcification. Pulmonic valve not well visualized. Normal tricuspid valve structure. IVC dilated at 3.0 cm without physiologic collapse suggestive of increased RA pressure. A color flow and spectral Doppler study was performed and revealed: Trace aortic regurgitation. Moderate posteriorly eccentric mitral regurgitation. Mitral diastolic velocities suggest reduced left ventricular relaxation c/w mild LV diastolic dysfunction (Grade I ). Moderate tricuspid regurgitation. Tricuspid systolic velocities suggests peak right ventricular systolic pressure of 43 mmHg, consistent with mild to moderate pulmonary hypertension. Pulmonic regurgitation present.
--- NOTE | 2018-04-05 15:28 | Internal Med Progress Note ---
Subjective Physician Name Buddy Arceo Attending Physician Buddy Arceo MD Current Medications Medications (Trade) Dose Ordered Sig/Georges Route PRN Reason Start Time Stop Time Status Last Admin Dose Admin Acetaminophen (Tylenol) 650 mg Q4H PRN ORAL Mild Pain (Pain Scale 1-3) 04/04/18 18:00 05/04/18 17:59 04/05/18 09:48 Acetaminophen (Tylenol) 650 mg Q4H PRN ORAL fever 04/04/18 18:00 05/04/18 17:59 Albuterol Sulfate (Proventil) 2.5 mg Q4H PRN HHN Shortness of Breath 04/04/18 18:00 04/09/18 17:59 Amlodipine Besylate (Norvasc) 10 mg DAILY ORAL 04/05/18 09:00 05/05/18 08:59 04/05/18 08:26 Carvedilol (Coreg) 25 mg EVERY 12 HOURS ORAL 04/04/18 21:00 05/04/18 20:59 04/05/18 08:27 Ceftriaxone Sodium 1 gm/ Dextrose 55 ml @ 110 mls/hr DAILY IV 04/05/18 09:00 04/12/18 08:59 04/05/18 08:27 Mirtazapine (Remeron) 7.5 mg QHS ORAL 04/05/18 21:00 05/05/18 20:59 Morphine Sulfate (Morphine Sulfate) 2 mg Q4H PRN IVP Moderate Pain (Pain Scale 4-6) 04/04/18 18:00 04/11/18 17:59 Ondansetron HCl (Zofran) 4 mg Q4H PRN IVP Nausea & Vomiting 04/04/18 18:00 05/04/18 17:59 Pantoprazole (Protonix) 40 mg DAILY ORAL 04/05/18 09:00 05/05/18 08:59 04/05/18 08:26 Temazepam (Restoril) 15 mg HSPRN PRN ORAL Insomnia 04/04/18 21:00 04/11/18 20:59 Allergies: Coded Allergies: SULFA (SULFONAMIDE ANTIBIOTICS) (Verified Allergy, Severe, 04/04/18) Subjective awake, alert, responsive, less SOB, No CP, Less cough Objective Last Vital Signs Date Time Temp Pulse Resp B/P (MAP) Pulse Ox O2 Delivery O2 Flow Rate FiO2 04/05/18 12:00 98.0 75 18 147/101 (116) 98 98.0 04/05/18 10:59 Room Air 04/04/18 15:16 2.0 Laboratory Tests Test 04/04/18 19:30 04/05/18 00:20 04/05/18 03:50 White Blood Count 5.2 K/UL (4.8-10.8) 4.5 K/UL (4.8-10.8) L Red Blood Count 3.78 M/UL (4.20-5.40) L 3.89 M/UL (4.20-5.40) L Hemoglobin 9.5 G/DL (12.0-16.0) L 10.1 G/DL (12.0-16.0) L Hematocrit 31.7 % (37.0-47.0) L 32.7 % (37.0-47.0) L Mean Corpuscular Volume 84 FL (80-99) 84 FL (80-99) Mean Corpuscular Hemoglobin 25.2 PG (27.0-31.0) L 26.0 PG (27.0-31.0) L Mean Corpuscular Hemoglobin Concent 30.0 G/DL (32.0-36.0) L 31.0 G/DL (32.0-36.0) L Red Cell Distribution Width 16.8 % (11.6-14.8) H 16.8 % (11.6-14.8) H Platelet Count 194 K/UL (150-450) 176 K/UL (150-450) Mean Platelet Volume 7.0 FL (6.5-10.1) 7.0 FL (6.5-10.1) Neutrophils (%) (Auto) 65.5 % (45.0-75.0) 61.0 % (45.0-75.0) Lymphocytes (%) (Auto) 21.5 % (20.0-45.0) 25.7 % (20.0-45.0) Monocytes (%) (Auto) 10.7 % (1.0-10.0) H 9.7 % (1.0-10.0) Eosinophils (%) (Auto) 1.6 % (0.0-3.0) 2.7 % (0.0-3.0) Basophils (%) (Auto) 0.7 % (0.0-2.0) 0.9 % (0.0-2.0) Sodium Level 141 MMOL/L (136-145) 140 MMOL/L (136-145) Potassium Level 2.9 MMOL/L (3.5-5.1) L 3.0 MMOL/L (3.5-5.1) L Chloride Level 103 MMOL/L (98-107) 102 MMOL/L (98-107) Carbon Dioxide Level 30 MMOL/L (21-32) 29 MMOL/L (21-32) Anion Gap 8 mmol/L (5-15) 9 mmol/L (5-15) Blood Urea Nitrogen 30 mg/dL (7-18) H 31 mg/dL (7-18) H Creatinine 2.5 MG/DL (0.55-1.30) H 2.8 MG/DL (0.55-1.30) H Estimat Glomerular Filtration Rate 25.0 mL/min (>60) 21.8 mL/min (>60) Glucose Level 113 MG/DL (74-106) H 116 MG/DL (74-106) H Calcium Level 8.1 MG/DL (8.5-10.1) L 7.9 MG/DL (8.5-10.1) L Total Bilirubin 0.3 MG/DL (0.2-1.0) Aspartate Amino Transf (AST/SGOT) 46 U/L (15-37) H Alanine Aminotransferase (ALT/SGPT) 35 U/L (12-78) Alkaline Phosphatase 89 U/L (46-116) Total Protein 7.2 G/DL (6.4-8.2) Albumin 2.6 G/DL (3.4-5.0) L Globulin 4.6 g/dL Albumin/Globulin Ratio 0.6 (1.0-2.7) L Urine Color Pale yellow Urine Appearance Cloudy Urine pH 5 (4.5-8.0) Urine Specific [place] 1.020 (1.005-1.035) Urine Protein 3+ (NEGATIVE) H Urine Glucose (UA) Negative (NEGATIVE) Urine Ketones Negative (NEGATIVE) Urine Blood 3+ (NEGATIVE) H Urine Nitrite Negative (NEGATIVE) Urine Bilirubin Negative (NEGATIVE) Urine Urobilinogen Normal MG/DL (0.0-1.0) Urine Leukocyte Esterase 3+ (NEGATIVE) H Urine RBC 5-10 /HPF (0 - 2) H Urine WBC Tntc /HPF (0 - 2) H Urine Squamous Epithelial Cells Many /LPF (NONE/OCC) H Urine Bacteria Moderate /HPF (NONE) H Uric Acid 7.6 MG/DL (2.6-7.2) H Total Creatine Kinase 149 U/L (26-308) Vancomycin Level Trough < 2.0 ug/mL (5.0-12.0) L Intake and Output 04/04/18 04/05/18 19:00 07:00 Intake Total 480 ml 1225 ml Balance 480 ml 1225 ml Intake Oral 480 ml 350 ml IV Total 875 ml # Voids 3 # Bowel Movements 1 Objective General: No acute distress, awake and alert HEENT: NCAT, sclera anicteric, PERRL, EOMI. Neck: Supple, no significant jugular venous distention, Lungs: Good inspiratory effort, clear to auscultation bilaterally, no Wheeze or Rales. Heart: Regular rate and rhythm, normal S1/S2, no murmurs Abdomen: soft, nontender, nondistended. Normoactive bowel sounds, mild obesity. / Rectal: Refused and deferred. Extremities: No Cyanosis , clubbing or edema. Neuro: A&O x 3, Able to move all extremities Skin: warm, no rashes or lesions Psych: Normal mood and affect Assessment/Plan Assessment/Plan 1. Right middle lobe pneumonia. 2. Incisional hernia. 3. Acute on chronic Congestive heart failure with systolic dysfunction, EFrEF. 4. Hypertension. 5. Crohn's disease. 6. Chronic Renal failure. 2D Echo: Severe left ventricular enlargement. Severe global left ventricular hypokinesis. Left ventricular ejection fraction estimated to be 15-20 %. Mild left ventricular hypertrophy. Small posterior pericardial effusion. Moderate left atrial enlargement. Mild right atrial enlargement. Mild right ventricular enlargement. Mild focal aortic valve sclerosis with adequate cusp excursion. Mild aortic root dilatation. Thickened mitral valve leaflets with normal excursion. Mitral annulus and aortic root calcification. Pulmonic valve not well visualized. Normal tricuspid valve structure. IVC dilated at 3.0 cm without physiologic collapse suggestive of increased RA pressure. A color flow and spectral Doppler study was performed and revealed: Trace aortic regurgitation. Moderate posteriorly eccentric mitral regurgitation. Mitral diastolic velocities suggest reduced left ventricular relaxation c/w mild LV diastolic dysfunction (Grade I ). Moderate tricuspid regurgitation. Tricuspid systolic velocities suggests peak right ventricular systolic pressure of 43 mmHg, consistent with mild to moderate pulmonary hypertension. Pulmonic regurgitation present. TREATMENT: Abx: ceftriaxone and azithromycin. Pulmonary consultation with Dr. Jeanna Andrade. Lasix and Aldactone Monitor Labs Full code Heparin SQ DC planning in 1 or 2 days. Buddy Arceo MD Apr 05, 2018 15:28
[2018-04-05] MEDS ORDERED: Tubing IV Secondary IV ONE ×2 (15:31)
[2018-04-05 16:00] VITALS: BP 139/98
[2018-04-05] MEDS: Spironolactone 50mg tab ORAL SCH (16:03)
[2018-04-05] MEDS: Morphine Sulfate 2mg/ml Inj IVP PRN ×2 (18:05→22:00)
--- NOTE | 2018-04-05 18:15 | Consultation ---
DATE OF CONSULTATION: 04/05/2018 CARDIOLOGY CONSULTATION CONSULTING PHYSICIAN: Kev Wall M.D. REASON FOR CONSULTATION: Management of congestive heart failure. HISTORY OF PRESENT ILLNESS: This is a 47-year-old lady with history of chronic congestive heart failure for which she underwent cardiac catheterization two years ago. The patient has nonischemic cardiomyopathy, has been on heart failure therapy since then. She states her ejection fraction is improved to around 50%. The patient presented to [facility] emergency room with right lower lobe pneumonia and incisional hernia. The patient was then transferred to [facility] for further evaluation and management. REVIEW OF SYSTEMS: Negative other than what was mentioned in the history of present illness. PAST MEDICAL HISTORY: As mentioned above. PAST SURGICAL HISTORY: Includes, 1. Cardiac catheterization in 2015. 2. Colectomy and colostomy placement in 2014. 3. Laparoscopic right oophorectomy. MEDICATIONS: Entresto 24/26 mg 1 tablet b.i.d., Coreg 12.5 mg b.i.d., and amlodipine 10 mg daily. ALLERGIES: She is allergic to sulfa. SOCIAL HISTORY: She is single, lives alone. She smokes half a pack a day. Does not drink alcohol or use any drugs. FAMILY HISTORY: Noncontributory. PHYSICAL EXAMINATION: VITAL SIGNS: Show blood pressure of 110/70, pulse is 70, respirations 18, and she is afebrile. HEAD AND NECK: Showed no JVD. LUNGS: Clear. CARDIOVASCULAR: Shows regular S1 and S2 with no gallop or murmur. ABDOMEN: Soft, nontender, status post colostomy, and incisional hernia. EXTREMITIES: No pitting edema. LABORATORY DATA: White count 4.5, hematocrit 10.4, hematocrit 32.7, and platelet count is 176,000. Sodium is 140, potassium 3.0, BUN of 31, creatinine 2.8, and glucose of 116. ASSESSMENT AND PLAN: 1. History of congestive heart failure due to nonischemic cardiomyopathy, more than two years based on cardiac catheterization. We will repeat the echocardiogram. The patient currently is euvolemic. Continue Coreg 25 mg b.i.d. and Entresto. 2. Hypertension, on Coreg on amlodipine. 3. Pneumonia, on ceftriaxone. 4. Crohn's disease, status post colectomy and colostomy. Further evaluation by Dr. Mccauley. Thank you very much for allowing me to participate in the care of this patient. Please do not hesitate to contact me for any questions regarding my evaluation. Kev Wall M.D. DR: ROYCE JOB#: [id number] CC:
[2018-04-05 18:20] LABS: APPEARANCE,URINE CLEAR; BILIRUBIN, URINE NEGATIVE (NEGATIVE); COLOR,URINE PALE YELLOW; GLUCOSE, URINE (UA) NEGATIVE (NEGATIVE); KETONES,URINE NEGATIVE (NEGATIVE); NITRITE,URINE NEGATIVE (NEGATIVE); PH,URINE 6 (4.5-8.0); PROTEIN,URINE 3+ (NEGATIVE); UROBILINOGEN,URINE NORMAL MG/DL (0.0-1.0)
[2018-04-05 18:23] LABS: LEUKOCYTE ESTERASE ,URINE 1+ (NEGATIVE)
[2018-04-05 20:00] VITALS: BP 141/106
[2018-04-05] MEDS: Heparin 5000 units/ml inj SUBQ SCH (21:59)
[2018-04-06] VITALS (8 sets, daily range): BP systolic 149–173; BP diastolic 84–126
[2018-04-06] MEDS: Heparin 5000 units/ml inj SUBQ SCH ×3 (05:23→22:17)
[2018-04-06 06:17] LABS: BASOPHILS % (AUTO) 1.8 % (0.0-2.0); EOSINOPHILS % (AUTO) 3.2 % (0.0-3.0); HEMATOCRIT 30.2 % (37.0-47.0); HEMOGLOBIN 9.2 G/DL (12.0-16.0); LYMPHOCYTES % (AUTO) 24.7 % (20.0-45.0); MEAN CORPUSCULAR VOLUME 85 FL (80-99); MONOCYTES % (AUTO) 11.7 % (1.0-10.0); NEUTROPHILS % (AUTO) 58.6 % (45.0-75.0); PLATELET COUNT 192 K/UL (150-450); RED BLOOD COUNT 3.56 M/UL (4.20-5.40); RED CELL DISTRIBUTION WIDTH 16.8 % (11.6-14.8); WHITE BLOOD COUNT 5.8 K/UL (4.8-10.8)
[2018-04-06 06:41] LABS: PHOSPHORUS 3.4 MG/DL (2.5-4.9)
[2018-04-06 06:46] LABS: % IRON SATURATION 12 % (15-50); IRON 30 ug/dL (50-175); TOTAL IRON BINDING CAPACITY 255 ug/dL (250-450)
[2018-04-06 06:48] LABS: LACTATE DEHYDROGENASE 335 U/L (81-234)
[2018-04-06 07:06] LABS: CHOLESTEROL 126 MG/DL (< 200); HDL CHOLESTEROL 64 MG/DL (40-60); TRIGLYCERIDES 58 MG/DL (30-150)
[2018-04-06] MEDS: cefTRIAXone 1 GM in D5W 55 ML IV SCH (08:36)
[2018-04-06] MEDS: Carvedilol 25mg Tab ORAL SCH ×2 (08:36→21:37)
[2018-04-06] MEDS: Spironolactone 50mg tab ORAL SCH (08:36)
--- NOTE | 2018-04-06 08:53 | Consultation ---
History of Present Illness General Date patient seen: Apr 06, 2018 Chief Complaint: SOB Reason for Consultation: PNA Present Illness HPI Ms De Luna is a 47 yo female with PMHx of CHF and Crohns who presented to the ED with PM. The patient initially presented to [place] and as found to have RML consolidation per reports. 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 She says that she had a cough with yellow sputum and SOB. She also reports CP. Denies Dysuria, N/V. No cough resolved and feel much better. ID was consulted for PNA PMHx/PSHx Crohns HTN CHF Incisional Hernia Colectomy with colostomy 2014 Oophorectomy SocHx Active smoker No E/D FamHx Not contributory Allergic to sullfa Allergies: Coded Allergies: SULFA (SULFONAMIDE ANTIBIOTICS) (Verified Allergy, Severe, 04/04/18) Medication History Scheduled Amlodipine Besylate* (Amlodipine Besylate*), 10 MG ORAL DAILY, (Reported) Carvedilol* (Carvedilol*), 25 MG ORAL EVERY 12 HOURS, (Reported) Sacubitril/Valsartan (Entresto 24 mg-26 mg Tablet), 1 EACH PO BID, (Reported) Patient History Healthcare decision maker Resuscitation status Advanced Directive on File Review of Systems All Other Systems: negative except mentioned in HPI Physical Exam Last 24 Hour Vital Signs Date Time Temp Pulse Resp B/P (MAP) Pulse Ox O2 Delivery O2 Flow Rate FiO2 04/06/18 08:22 84 18 99 Nasal Cannula 2.0 28 04/06/18 08:17 98.8 82 18 158/108 (125) 98 98.8 04/06/18 08:12 79 18 98 Nasal Cannula 2.0 28 04/06/18 08:05 79 18 Room Air 04/06/18 04:00 98.0 72 18 158/84 (108) 95 98.0 04/06/18 00:00 98.5 77 16 149/96 (113) 93 98.5 04/05/18 21:00 Room Air 04/05/18 20:56 81 139/98 04/05/18 20:00 97.9 72 18 141/106 (118) 93 97.9 04/05/18 19:52 81 18 Room Air 04/05/18 16:00 97.8 68 19 139/98 (112) 94 97.8 04/05/18 12:00 98.0 75 18 147/101 (116) 98 98.0 04/05/18 10:59 75 20 Room Air Intake and Output 04/05/18 04/06/18 19:00 07:00 Intake Total 1160 ml Balance 1160 ml IV Total 360 ml Other 800 ml # Voids 3 # Bowel Movements 1 Laboratory Tests Test 04/05/18 17:59 04/06/18 04:50 04/06/18 07:17 Urine Color Pale yellow Urine Appearance Clear Urine pH 6 (4.5-8.0) Urine Specific [place] 1.015 (1.005-1.035) Urine Protein 3+ (NEGATIVE) H Urine Glucose (UA) Negative (NEGATIVE) Urine Ketones Negative (NEGATIVE) Urine Blood 2+ (NEGATIVE) H Urine Nitrite Negative (NEGATIVE) Urine Bilirubin Negative (NEGATIVE) Urine Urobilinogen Normal MG/DL (0.0-1.0) Urine Leukocyte Esterase 1+ (NEGATIVE) H Urine RBC 2-4 /HPF (0 - 2) H Urine WBC 0-2 /HPF (0 - 2) Urine Squamous Epithelial Cells Moderate /LPF (NONE/OCC) H Urine Bacteria Few /HPF (NONE) Urine Eosinophils None seen (NONE SEEN) Urine Random Sodium < 20 mmol/L (20-110) L Urine Potassium Timed 17 mmol/L (12-62) White Blood Count 5.8 K/UL (4.8-10.8) Red Blood Count 3.56 M/UL (4.20-5.40) L Hemoglobin 9.2 G/DL (12.0-16.0) L Hematocrit 30.2 % (37.0-47.0) L Mean Corpuscular Volume 85 FL (80-99) Mean Corpuscular Hemoglobin 25.9 PG (27.0-31.0) L Mean Corpuscular Hemoglobin Concent 30.5 G/DL (32.0-36.0) L Red Cell Distribution Width 16.8 % (11.6-14.8) H Platelet Count 192 K/UL (150-450) Mean Platelet Volume 7.3 FL (6.5-10.1) Neutrophils (%) (Auto) 58.6 % (45.0-75.0) Lymphocytes (%) (Auto) 24.7 % (20.0-45.0) Monocytes (%) (Auto) 11.7 % (1.0-10.0) H Eosinophils (%) (Auto) 3.2 % (0.0-3.0) H Basophils (%) (Auto) 1.8 % (0.0-2.0) Erythrocyte Sedimentation Rate Pending Reticulocyte Count Pending Prothrombin Time 10.6 SEC (9.30-11.50) Prothromb Time International Ratio 1.0 (0.9-1.1) Activated Partial Thromboplast Time 31 SEC (23-33) Phosphorus Level 3.4 MG/DL (2.5-4.9) Magnesium Level 2.1 MG/DL (1.8-2.4) Iron Level 30 ug/dL (50-175) L Total Iron Binding Capacity 255 ug/dL (250-450) Percent Iron Saturation 12 % (15-50) L Unsaturated Iron Binding 225 ug/dL (112-346) Lactate Dehydrogenase 335 U/L (81-234) H Pro-B-Type Natriuretic Peptide > 75206 pg/mL (0-125) H Triglycerides Level 58 MG/DL (30-150) Cholesterol Level 126 MG/DL (< 200) LDL Cholesterol 114 mg/dL (<100) H HDL Cholesterol 64 MG/DL (40-60) H Cholesterol/HDL Ratio 2.0 (3.3-4.4) L Carcinoembryonic Antigen Pending Vitamin B12 Level 599 PG/ML (193-986) Folate 17.1 NG/ML (8.6-58.9) Stool Occult Blood Pending Height (Feet): 5 Height (Inches): 5.00 Weight (Pounds): 193 Medications Current Medications Medications (Trade) Dose Ordered Sig/Georges Route PRN Reason Start Time Stop Time Status Last Admin Dose Admin Acetaminophen (Tylenol) 650 mg Q4H PRN ORAL Mild Pain (Pain Scale 1-3) 04/04/18 18:00 05/04/18 17:59 18 09:48 Acetaminophen (Tylenol) 650 mg Q4H PRN ORAL fever 04/04/18 18:00 05/04/18 17:59 Albuterol Sulfate (Proventil) 2.5 mg Q4H PRN HHN Shortness of Breath 04/04/18 18:00 04/09/18 17:59 04/06/18 08:11 Amlodipine Besylate (Norvasc) 10 mg DAILY ORAL 04/05/18 09:00 05/05/18 08:59 04/05/18 08:26 Carvedilol (Coreg) 25 mg EVERY 12 HOURS ORAL 04/04/18 21:00 05/04/18 20:59 04/05/18 20:56 Ceftriaxone Sodium 1 gm/ Dextrose 55 ml @ 110 mls/hr DAILY IV 04/05/18 09:00 04/12/18 08:59 04/05/18 08:27 Furosemide (Lasix) 20 mg DAILY ORAL 04/05/18 15:30 05/05/18 15:29 04/05/18 16:03 Heparin Sodium (Porcine) (Heparin 5000 units/ml) 5,000 units EVERY 8 HOURS SUBQ 04/05/18 22:00 05/05/18 21:59 04/05/18 21:59 Mirtazapine (Remeron) 7.5 mg QHS ORAL 04/05/18 21:00 05/05/18 20:59 04/05/18 20:56 Morphine Sulfate (Morphine Sulfate) 2 mg Q4H PRN IVP Moderate Pain (Pain Scale 4-6) 04/04/18 18:00 04/11/18 17:59 04/05/18 22:00 Ondansetron HCl (Zofran) 4 mg Q4H PRN IVP Nausea & Vomiting 04/04/18 18:00 05/04/18 17:59 Pantoprazole (Protonix) 40 mg DAILY ORAL 04/05/18 09:00 05/05/18 08:59 04/05/18 08:26 Spironolactone (Aldactone) 50 mg DAILY ORAL 04/05/18 15:30 05/05/18 15:29 04/05/18 16:03 Temazepam (Restoril) 15 mg HSPRN PRN ORAL Insomnia 04/04/18 21:00 04/11/18 20:59 Objective Narrative Gen: NAD, well appearing, alert, On RA HEENT: NCAT, MMM, EOMI, PERRL, No Oral lesion, no scleral icterus NECK: full range of motion, supple, no meningismus, No LAD, No JVD LUNGS: CTAB, No W/C, No Accessory muscle use CARDS: RRR, S1, S2, No M/R/G ABD: Soft, NT, ND, No R/G, + BS, No HSM, No Masses, Colostomy tube : Deferred Ext: C/C/E, Pulses 2+ B/L (DP, Rad), Right foot with healing ulceration and minimal surrounding erythema. NEURO: A/O x 4, Strength and Sensation Grossly intact PSYCH: mood/affect normal SKIN: warm/dry, No rashes, Assessment/Plan Assessment/Plan CAP - Improving with Abx 04/05/18 CXR - No evidence of PNA Fevers Resolved Positive UA Asymptomatic Urine Cx Pend Would not treat specifically at this time Crohns HTN CHF Incisional Hernia Colectomy with colostomy 2014 Oophorectomy PLAN: - Continue Ceftriaxone #2/7 and Azithromycin #2/7 for CAP - Could be D/C on PO Azithromycin 250mg Qday for 4 more days. - Monitor CBC and Temps - Supportive care Thank you for this consult. We will continue to follow the patient during this hospitalization. Royal Jara MD Apr 06, 2018 08:53
--- NOTE | 2018-04-06 10:00 | Pulmonology Progress Note ---
Assessment/Plan Assessment/Plan ASSESSMENT right lower lobe pneumonia incisional ventral hernia probable UTI renal failure, possible acute on chronic hypokalemia systolic congestive heart failure nonischemic cardiomyopathy with EF 15-20% moderate MR moderate pulmonary HTN hypertension anemia Crohn's disease s/p colostomy anxiety PLAN OF CARE Med Surg floor IV fluids Abx, fup with cx O2 prn to keep sat above 92%, pulmonary toilet ATC + prn antitussive prn fup with CXR DVT prophylaxis monitor renal parameters and electrolytes , replace electrolytes as needed , avoid nephrotoxic renal US hernia reducible, per surgeon can be repaired electively if remains reducible cardio follows ECHO with EF 15-20%, moderate MR and RVSP of 43 c/w moderate pulmonary HTN anti-failure regimen - per cardio recs on maintenance dose of diuretic Lasix/ Aldactone, BB, ? add GARRISON-per cardio discretion close monitoring of volumes and cardiorenal parameters , currently euvolemic BP management with CCB and BB colostomy care GI prophylaxis PT/OT Pain management case discussed and evaluated by supervising physician Subjective Allergies: Coded Allergies: SULFA (SULFONAMIDE ANTIBIOTICS) (Verified Allergy, Severe, 04/04/18) Subjective congested, cough, some wheezing no chest pain ECHO back with EF 15-20% Objective Last 24 Hour Vital Signs Date Time Temp Pulse Resp B/P (MAP) Pulse Ox O2 Delivery O2 Flow Rate FiO2 04/06/18 08:36 84 158/108 04/06/18 08:36 84 158/108 04/06/18 08:22 84 18 99 Nasal Cannula 2.0 28 04/06/18 08:17 98.8 82 18 158/108 (125) 98 98.8 04/06/18 08:12 79 18 98 Nasal Cannula 2.0 28 04/06/18 08:05 79 18 Room Air 04/06/18 04:00 98.0 72 18 158/84 (108) 95 98.0 04/06/18 00:00 98.5 77 16 149/96 (113) 93 98.5 04/05/18 21:00 Room Air 04/05/18 20:56 81 139/98 04/05/18 20:00 97.9 72 18 141/106 (118) 93 97.9 04/05/18 19:52 81 18 Room Air 04/05/18 16:00 97.8 68 19 139/98 (112) 94 97.8 04/05/18 12:00 98.0 75 18 147/101 (116) 98 98.0 04/05/18 10:59 75 20 Room Air Intake and Output 04/05/18 04/06/18 19:00 07:00 Intake Total 1160 ml Balance 1160 ml IV Total 360 ml Other 800 ml # Voids 3 # Bowel Movements 1 General Appearance: no acute distress HEENT: normocephalic, atraumatic, anicteric Respiratory/Chest: chest wall non-tender, crackles/rales - some scattered at abses , expiratory wheezing - scattered Cardiovascular: normal peripheral pulses, normal rate Abdomen: normal bowel sounds, soft, non tender, other - colostomy with brown color output Extremities: no edema, pedal pulses normal Neurologic/Psychiatric: abnormal gait, alert, oriented x 3, responsive Laboratory Tests 04/05/18 17:59: Urine Color Pale yellow, Urine Appearance Clear, Urine pH 6, Urine Specific [place] 1.015, Urine Protein 3+H, Urine Glucose (UA) Negative, Urine Ketones Negative, Urine Blood 2+H, Urine Nitrite Negative, Urine Bilirubin Negative, Urine Urobilinogen Normal, Urine Leukocyte Esterase 1+H, Urine RBC 2-4H, Urine WBC 0-2, Urine Squamous Epithelial Cells ModerateH, Urine Bacteria Few, Urine Eosinophils None seen, Urine Random Sodium < 20L, Urine Potassium Timed 17 04/06/18 04:50: White Blood Count 5.8, Red Blood Count 3.56L, Hemoglobin 9.2L, Hematocrit 30.2L , Mean Corpuscular Volume 85, Mean Corpuscular Hemoglobin 25.9L, Mean Corpuscular Hemoglobin Concent 30.5L, Red Cell Distribution Width 16.8H, Platelet Count 192, Mean Platelet Volume 7.3, Neutrophils (%) (Auto) 58.6, Lymphocytes (%) (Auto) 24.7, Monocytes (%) (Auto) 11.7H, Eosinophils (%) (Auto) 3.2H, Basophils (%) (Auto) 1.8, Erythrocyte Sedimentation Rate 68H, Reticulocyte Count [Pending], Prothrombin Time 10.6, Prothromb Time International Ratio 1.0, Activated Partial Thromboplast Time 31, Phosphorus Level 3.4, Magnesium Level 2.1, Iron Level 30L, Total Iron Binding Capacity 255 , Percent Iron Saturation 12L, Unsaturated Iron Binding 225, Lactate Dehydrogenase 335H, Pro-B-Type Natriuretic Peptide > 67724R, Triglycerides Level 58, Cholesterol Level 126, LDL Cholesterol 114H, HDL Cholesterol 64H, Cholesterol/HDL Ratio 2.0L, Carcinoembryonic Antigen [Pending], Vitamin B12 Level 599, Folate 17.1 04/06/18 07:17: Stool Occult Blood [Pending] Current Medications Medications (Trade) Dose Ordered Sig/Georges Route PRN Reason Start Time Stop Time Status Last Admin Dose Admin Acetaminophen (Tylenol) 650 mg Q4H PRN ORAL Mild Pain (Pain Scale 1-3) 04/04/18 18:00 05/04/18 17:59 04/05/18 09:48 Acetaminophen (Tylenol) 650 mg Q4H PRN ORAL fever 04/04/18 18:00 05/04/18 17:59 Albuterol Sulfate (Proventil) 2.5 mg Q4H PRN HHN Shortness of Breath 04/04/18 18:00 04/09/18 17:59 04/06/18 08:11 Amlodipine Besylate (Norvasc) 10 mg DAILY ORAL 04/05/18 09:00 05/05/18 08:59 04/06/18 08:36 Carvedilol (Coreg) 25 mg EVERY 12 HOURS ORAL 04/04/18 21:00 05/04/18 20:59 04/06/18 08:36 Ceftriaxone Sodium 1 gm/ Dextrose 55 ml @ 110 mls/hr DAILY IV 04/05/18 09:00 04/12/18 08:59 04/06/18 08:36 Furosemide (Lasix) 20 mg DAILY ORAL 04/05/18 15:30 05/05/18 15:29 04/05/18 16:03 Heparin Sodium (Porcine) (Heparin 5000 units/ml) 5,000 units EVERY 8 HOURS SUBQ 04/05/18 22:00 05/05/18 21:59 04/05/18 21:59 Mirtazapine (Remeron) 7.5 mg QHS ORAL 04/05/18 21:00 05/05/18 20:59 04/05/18 20:56 Morphine Sulfate (Morphine Sulfate) 2 mg Q4H PRN IVP Moderate Pain (Pain Scale 4-6) 04/04/18 18:00 04/11/18 17:59 04/05/18 22:00 Ondansetron HCl (Zofran) 4 mg Q4H PRN IVP Nausea & Vomiting 04/04/18 18:00 05/04/18 17:59 Pantoprazole (Protonix) 40 mg DAILY ORAL 04/05/18 09:00 05/05/18 08:59 04/06/18 08:36 Spironolactone (Aldactone) 50 mg DAILY ORAL 04/05/18 15:30 05/05/18 15:29 04/05/18 16:03 Temazepam (Restoril) 15 mg HSPRN PRN ORAL Insomnia 04/04/18 21:00 04/11/18 20:59 Kerri De La Vega DISTRIBUTION DESIGNER Apr 06, 2018 10:00
[2018-04-06 10:13] LABS: ANION GAP 12 mmol/L (5-15); BLOOD UREA NITROGEN 34 mg/dL (7-18); CALCIUM 8.4 MG/DL (8.5-10.1); CARBON DIOXIDE 24 MMOL/L (21-32); CHLORIDE 105 MMOL/L (98-107); CREATININE 2.6 MG/DL (0.55-1.30); POTASSIUM 3.7 MMOL/L (3.5-5.1); SODIUM 141 MMOL/L (136-145)
[2018-04-06] MEDS: Promethazine/Codeine 5ml UD ORAL PRN ×2 (11:25→22:20)
--- NOTE | 2018-04-06 11:51 | General Surgery Progress Note ---
General Surgery-Progress Note Subjective Symptoms: improved, pain absent, tolerating diet, passing flatus Objective Last 24 Hour Vital Signs Date Time Temp Pulse Resp B/P (MAP) Pulse Ox O2 Delivery O2 Flow Rate FiO2 04/06/18 09:00 Room Air 04/06/18 08:36 84 158/108 04/06/18 08:36 84 158/108 04/06/18 08:22 84 18 99 Nasal Cannula 2.0 28 04/06/18 08:17 98.8 82 18 158/108 (125) 98 98.8 04/06/18 08:12 79 18 98 Nasal Cannula 2.0 28 04/06/18 08:05 79 18 Room Air 04/06/18 04:00 98.0 72 18 158/84 (108) 95 98.0 04/06/18 00:00 98.5 77 16 149/96 (113) 93 98.5 04/05/18 21:00 Room Air 04/05/18 20:56 81 139/98 04/05/18 20:00 97.9 72 18 141/106 (118) 93 97.9 04/05/18 19:52 81 18 Room Air 04/05/18 16:00 97.8 68 19 139/98 (112) 94 97.8 04/05/18 12:00 98.0 75 18 147/101 (116) 98 98.0 I&O Intake and Output 04/05/18 04/06/18 19:00 07:00 Intake Total 1160 ml Balance 1160 ml IV Total 360 ml Other 800 ml # Voids 3 # Bowel Movements 1 Wound: clean, dry, intact Drains: none Cardiovascular: RSR Respiratory: clear Abdomen: soft, flat, other - reducible hernia ventral midline below umbilicalicus incisional Extremities: no cyanosis Laboratory Tests Test 04/05/18 17:59 04/06/18 04:50 04/06/18 07:17 Urine Color Pale yellow Urine Appearance Clear Urine pH 6 (4.5-8.0) Urine Specific [place] 1.015 (1.005-1.035) Urine Protein 3+ (NEGATIVE) H Urine Glucose (UA) Negative (NEGATIVE) Urine Ketones Negative (NEGATIVE) Urine Blood 2+ (NEGATIVE) H Urine Nitrite Negative (NEGATIVE) Urine Bilirubin Negative (NEGATIVE) Urine Urobilinogen Normal MG/DL (0.0-1.0) Urine Leukocyte Esterase 1+ (NEGATIVE) H Urine RBC 2-4 /HPF (0 - 2) H Urine WBC 0-2 /HPF (0 - 2) Urine Squamous Epithelial Cells Moderate /LPF (NONE/OCC) H Urine Bacteria Few /HPF (NONE) Urine Eosinophils None seen (NONE SEEN) Urine Random Sodium < 20 mmol/L (20-110) L Urine Potassium Timed 17 mmol/L (12-62) White Blood Count 5.8 K/UL (4.8-10.8) Red Blood Count 3.56 M/UL (4.20-5.40) L Hemoglobin 9.2 G/DL (12.0-16.0) L Hematocrit 30.2 % (37.0-47.0) L Mean Corpuscular Volume 85 FL (80-99) Mean Corpuscular Hemoglobin 25.9 PG (27.0-31.0) L Mean Corpuscular Hemoglobin Concent 30.5 G/DL (32.0-36.0) L Red Cell Distribution Width 16.8 % (11.6-14.8) H Platelet Count 192 K/UL (150-450) Mean Platelet Volume 7.3 FL (6.5-10.1) Neutrophils (%) (Auto) 58.6 % (45.0-75.0) Lymphocytes (%) (Auto) 24.7 % (20.0-45.0) Monocytes (%) (Auto) 11.7 % (1.0-10.0) H Eosinophils (%) (Auto) 3.2 % (0.0-3.0) H Basophils (%) (Auto) 1.8 % (0.0-2.0) Erythrocyte Sedimentation Rate 68 MM/HR (0-20) H Reticulocyte Count Pending Prothrombin Time 10.6 SEC (9.30-11.50) Prothromb Time International Ratio 1.0 (0.9-1.1) Activated Partial Thromboplast Time 31 SEC (23-33) Sodium Level 141 MMOL/L (136-145) Potassium Level 3.7 MMOL/L (3.5-5.1) Chloride Level 105 MMOL/L (98-107) Carbon Dioxide Level 24 MMOL/L (21-32) Anion Gap 12 mmol/L (5-15) Blood Urea Nitrogen 34 mg/dL (7-18) H Creatinine 2.6 MG/DL (0.55-1.30) H Estimat Glomerular Filtration Rate 23.9 mL/min (>60) Glucose Level 89 MG/DL (74-106) Calcium Level 8.4 MG/DL (8.5-10.1) L Phosphorus Level 3.4 MG/DL (2.5-4.9) Magnesium Level 2.1 MG/DL (1.8-2.4) Iron Level 30 ug/dL (50-175) L Total Iron Binding Capacity 255 ug/dL (250-450) Percent Iron Saturation 12 % (15-50) L Unsaturated Iron Binding 225 ug/dL (112-346) Lactate Dehydrogenase 335 U/L (81-234) H Pro-B-Type Natriuretic Peptide > 47909 pg/mL (0-125) H Triglycerides Level 58 MG/DL (30-150) Cholesterol Level 126 MG/DL (< 200) LDL Cholesterol 114 mg/dL (<100) H HDL Cholesterol 64 MG/DL (40-60) H Cholesterol/HDL Ratio 2.0 (3.3-4.4) L Carcinoembryonic Antigen Pending Vitamin B12 Level 599 PG/ML (193-986) Folate 17.1 NG/ML (8.6-58.9) Stool Occult Blood Pending Plan Problems: (1) Incisional hernia Assessment & Plan: incisional ventral hernia from prior midline laparotomy incision bowel contents noted and reducible discussed findings with patient. discussed possible incarceration, strangulation, enlargement. discussed options. would recommend medical treatment of pna can repair electively if remains reducible office information given to patient thank you Christiano Mccauley Apr 06, 2018 11:51
[2018-04-06] MEDS: Albuterol/Ipratropium 3ml neb HHN SCH ×2 (13:12→19:38)
--- NOTE | 2018-04-06 14:24 | Cardiac Electrophysiology PN ---
Assessment/Plan Assessment/Plan 1.Congestive heart failure due to nonischemic cardiomyopathy, more than two years based on cardiac catheterization. EF is 15-20%. Coreg 25 mg b.i.d. Entresto Not on formulary. Add Losartan 50 bid and LAsix and Aldactone 25 daily 2. Hypertension, on CHF meds. DC amlodipine. 3. Pneumonia, on ceftriaxone. 4. Crohn's disease, status post colectomy and colostomy. Further evaluation by Dr. Mccauley. ISMAEL RN Subjective Subjective Feeling better. No CP or SOB Objective Last 24 Hour Vital Signs Date Time Temp Pulse Resp B/P (MAP) Pulse Ox O2 Delivery O2 Flow Rate FiO2 04/06/18 13:19 89 18 100 Nasal Cannula 2.0 28 04/06/18 13:12 82 18 98 Nasal Cannula 2.0 28 04/06/18 12:55 98.4 82 20 161/124 (136) 96 98.4 04/06/18 09:00 Room Air 04/06/18 08:36 84 158/108 04/06/18 08:36 84 158/108 04/06/18 08:22 84 18 99 Nasal Cannula 2.0 28 04/06/18 08:17 98.8 82 18 158/108 (125) 98 98.8 04/06/18 08:12 79 18 98 Nasal Cannula 2.0 28 04/06/18 08:05 79 18 Room Air 04/06/18 04:00 98.0 72 18 158/84 (108) 95 98.0 04/06/18 00:00 98.5 77 16 149/96 (113) 93 98.5 04/05/18 21:00 Room Air 04/05/18 20:56 81 139/98 04/05/18 20:00 97.9 72 18 141/106 (118) 93 97.9 04/05/18 19:52 81 18 Room Air 04/05/18 16:00 97.8 68 19 139/98 (112) 94 97.8 Intake and Output 04/05/18 04/06/18 19:00 07:00 Intake Total 1160 ml Balance 1160 ml IV Total 360 ml Other 800 ml # Voids 3 # Bowel Movements 1 Laboratory Tests Test 04/05/18 17:59 04/06/18 04:50 04/06/18 07:17 Urine Color Pale yellow Urine Appearance Clear Urine pH 6 (4.5-8.0) Urine Specific [place] 1.015 (1.005-1.035) Urine Protein 3+ (NEGATIVE) H Urine Glucose (UA) Negative (NEGATIVE) Urine Ketones Negative (NEGATIVE) Urine Blood 2+ (NEGATIVE) H Urine Nitrite Negative (NEGATIVE) Urine Bilirubin Negative (NEGATIVE) Urine Urobilinogen Normal MG/DL (0.0-1.0) Urine Leukocyte Esterase 1+ (NEGATIVE) H Urine RBC 2-4 /HPF (0 - 2) H Urine WBC 0-2 /HPF (0 - 2) Urine Squamous Epithelial Cells Moderate /LPF (NONE/OCC) H Urine Bacteria Few /HPF (NONE) Urine Eosinophils None seen (NONE SEEN) Urine Random Sodium < 20 mmol/L (20-110) L Urine Potassium Timed 17 mmol/L (12-62) White Blood Count 5.8 K/UL (4.8-10.8) Red Blood Count 3.56 M/UL (4.20-5.40) L Hemoglobin 9.2 G/DL (12.0-16.0) L Hematocrit 30.2 % (37.0-47.0) L Mean Corpuscular Volume 85 FL (80-99) Mean Corpuscular Hemoglobin 25.9 PG (27.0-31.0) L Mean Corpuscular Hemoglobin Concent 30.5 G/DL (32.0-36.0) L Red Cell Distribution Width 16.8 % (11.6-14.8) H Platelet Count 192 K/UL (150-450) Mean Platelet Volume 7.3 FL (6.5-10.1) Neutrophils (%) (Auto) 58.6 % (45.0-75.0) Lymphocytes (%) (Auto) 24.7 % (20.0-45.0) Monocytes (%) (Auto) 11.7 % (1.0-10.0) H Eosinophils (%) (Auto) 3.2 % (0.0-3.0) H Basophils (%) (Auto) 1.8 % (0.0-2.0) Differential Total Cells Counted 100 Neutrophils % (Manual) 55 % (45-75) Lymphocytes % (Manual) 25 % (20-45) Monocytes % (Manual) 15 % (1-10) H Eosinophils % (Manual) 3 % (0-3) Basophils % (Manual) 0 % (0-2) Band Neutrophils 2 % (0-8) Platelet Estimate Adequate Platelet Morphology Normal Hypochromasia 1+ Anisocytosis 1+ Erythrocyte Sedimentation Rate 68 MM/HR (0-20) H Reticulocyte Count 2.0 % (0.0-2.0) Prothrombin Time 10.6 SEC (9.30-11.50) Prothromb Time International Ratio 1.0 (0.9-1.1) Activated Partial Thromboplast Time 31 SEC (23-33) Sodium Level 141 MMOL/L (136-145) Potassium Level 3.7 MMOL/L (3.5-5.1) Chloride Level 105 MMOL/L (98-107) Carbon Dioxide Level 24 MMOL/L (21-32) Anion Gap 12 mmol/L (5-15) Blood Urea Nitrogen 34 mg/dL (7-18) H Creatinine 2.6 MG/DL (0.55-1.30) H Estimat Glomerular Filtration Rate 23.9 mL/min (>60) Glucose Level 89 MG/DL (74-106) Calcium Level 8.4 MG/DL (8.5-10.1) L Phosphorus Level 3.4 MG/DL (2.5-4.9) Magnesium Level 2.1 MG/DL (1.8-2.4) Iron Level 30 ug/dL (50-175) L Total Iron Binding Capacity 255 ug/dL (250-450) Percent Iron Saturation 12 % (15-50) L Unsaturated Iron Binding 225 ug/dL (112-346) Lactate Dehydrogenase 335 U/L (81-234) H Pro-B-Type Natriuretic Peptide > 18623 pg/mL (0-125) H Triglycerides Level 58 MG/DL (30-150) Cholesterol Level 126 MG/DL (< 200) LDL Cholesterol 114 mg/dL (<100) H HDL Cholesterol 64 MG/DL (40-60) H Cholesterol/HDL Ratio 2.0 (3.3-4.4) L Carcinoembryonic Antigen Pending Vitamin B12 Level 599 PG/ML (193-986) Folate 17.1 NG/ML (8.6-58.9) Stool Occult Blood Positive (NEGATIVE) Objective HEAD AND NECK: Showed no JVD. LUNGS: Clear. CARDIOVASCULAR: Shows regular S1 and S2 with no gallop or murmur. ABDOMEN: Soft, nontender, status post colostomy, and incisional hernia. EXTREMITIES: No pitting edema. Kev Wall MD Apr 06, 2018 14:24
--- NOTE | 2018-04-06 14:50 | Internal Med Progress Note ---
Subjective Date of Service: Apr 06, 2018 Physician Name Morfin,Be Attending Physician Buddy Arceo MD Current Medications Medications (Trade) Dose Ordered Sig/Georges Route PRN Reason Start Time Stop Time Status Last Admin Dose Admin Acetaminophen (Tylenol) 650 mg Q4H PRN ORAL Mild Pain (Pain Scale 1-3) 04/04/18 18:00 05/04/18 17:59 04/05/18 09:48 Acetaminophen (Tylenol) 650 mg Q4H PRN ORAL fever 04/04/18 18:00 05/04/18 17:59 Albuterol Sulfate (Proventil) 2.5 mg Q4H PRN HHN Shortness of Breath 04/04/18 18:00 04/09/18 17:59 04/06/18 08:11 Albuterol/ Ipratropium (Albuterol/ Ipratropium) 3 ml TIDRT HHN 04/06/18 13:00 04/11/18 12:59 04/06/18 13:12 Carvedilol (Coreg) 25 mg EVERY 12 HOURS ORAL 04/04/18 21:00 05/04/18 20:59 04/06/18 08:36 Ceftriaxone Sodium 1 gm/ Dextrose 55 ml @ 110 mls/hr DAILY IV 04/05/18 09:00 04/12/18 08:59 04/06/18 08:36 Furosemide (Lasix) 20 mg DAILY ORAL 04/05/18 15:30 05/05/18 15:29 04/05/18 16:03 Heparin Sodium (Porcine) (Heparin 5000 units/ml) 5,000 units EVERY 8 HOURS SUBQ 04/05/18 22:00 05/05/18 21:59 04/06/18 14:01 Losartan Potassium (Cozaar) 50 mg EVERY 12 HOURS ORAL 04/06/18 21:00 05/06/18 20:59 Mirtazapine (Remeron) 7.5 mg QHS ORAL 04/05/18 21:00 05/05/18 20:59 04/05/18 20:56 Morphine Sulfate (Morphine Sulfate) 2 mg Q4H PRN IVP Moderate Pain (Pain Scale 4-6) 04/04/18 18:00 04/11/18 17:59 04/05/18 22:00 Ondansetron HCl (Zofran) 4 mg Q4H PRN IVP Nausea & Vomiting 04/04/18 18:00 05/04/18 17:59 Pantoprazole (Protonix) 40 mg DAILY ORAL 04/05/18 09:00 05/05/18 08:59 04/06/18 08:36 Promethazine HCl/ Codeine (Phenergan with Codeine) 5 ml Q4H PRN ORAL For Cough 04/06/18 11:14 05/06/18 11:13 04/06/18 11:25 Spironolactone (Aldactone) 25 mg DAILY ORAL 04/07/18 09:00 05/07/18 08:59 Temazepam (Restoril) 15 mg HSPRN PRN ORAL Insomnia 04/04/18 21:00 04/11/18 20:59 Allergies: Coded Allergies: SULFA (SULFONAMIDE ANTIBIOTICS) (Verified Allergy, Severe, 04/04/18) ROS Limited/Unobtainable: No Constitutional: Reports: no symptoms HEENT: Reports: no symptoms Cardiovascular: Reports: no symptoms Respiratory: Reports: shortness of breath Gastrointestinal/Abdominal: Reports: no symptoms Genitourinary: Reports: no symptoms Neurologic/Psychiatric: Reports: no symptoms Subjective 47 YO F admitted with shortness of breath and incisional hernia . Now pneumonia. Cover for Int Jefry-Dr Arceo Objective Last Vital Signs Date Time Temp Pulse Resp B/P (MAP) Pulse Ox O2 Delivery O2 Flow Rate FiO2 04/06/18 13:19 89 18 100 Nasal Cannula 2.0 28 04/06/18 12:55 98.4 161/124 (136) 98.4 Laboratory Tests Test 04/05/18 17:59 04/06/18 04:50 04/06/18 07:17 Urine Color Pale yellow Urine Appearance Clear Urine pH 6 (4.5-8.0) Urine Specific [place] 1.015 (1.005-1.035) Urine Protein 3+ (NEGATIVE) H Urine Glucose (UA) Negative (NEGATIVE) Urine Ketones Negative (NEGATIVE) Urine Blood 2+ (NEGATIVE) H Urine Nitrite Negative (NEGATIVE) Urine Bilirubin Negative (NEGATIVE) Urine Urobilinogen Normal MG/DL (0.0-1.0) Urine Leukocyte Esterase 1+ (NEGATIVE) H Urine RBC 2-4 /HPF (0 - 2) H Urine WBC 0-2 /HPF (0 - 2) Urine Squamous Epithelial Cells Moderate /LPF (NONE/OCC) H Urine Bacteria Few /HPF (NONE) Urine Eosinophils None seen (NONE SEEN) Urine Random Sodium < 20 mmol/L (20-110) L Urine Potassium Timed 17 mmol/L (12-62) White Blood Count 5.8 K/UL (4.8-10.8) Red Blood Count 3.56 M/UL (4.20-5.40) L Hemoglobin 9.2 G/DL (12.0-16.0) L Hematocrit 30.2 % (37.0-47.0) L Mean Corpuscular Volume 85 FL (80-99) Mean Corpuscular Hemoglobin 25.9 PG (27.0-31.0) L Mean Corpuscular Hemoglobin Concent 30.5 G/DL (32.0-36.0) L Red Cell Distribution Width 16.8 % (11.6-14.8) H Platelet Count 192 K/UL (150-450) Mean Platelet Volume 7.3 FL (6.5-10.1) Neutrophils (%) (Auto) 58.6 % (45.0-75.0) Lymphocytes (%) (Auto) 24.7 % (20.0-45.0) Monocytes (%) (Auto) 11.7 % (1.0-10.0) H Eosinophils (%) (Auto) 3.2 % (0.0-3.0) H Basophils (%) (Auto) 1.8 % (0.0-2.0) Differential Total Cells Counted 100 Neutrophils % (Manual) 55 % (45-75) Lymphocytes % (Manual) 25 % (20-45) Monocytes % (Manual) 15 % (1-10) H Eosinophils % (Manual) 3 % (0-3) Basophils % (Manual) 0 % (0-2) Band Neutrophils 2 % (0-8) Platelet Estimate Adequate Platelet Morphology Normal Hypochromasia 1+ Anisocytosis 1+ Erythrocyte Sedimentation Rate 68 MM/HR (0-20) H Reticulocyte Count 2.0 % (0.0-2.0) Prothrombin Time 10.6 SEC (9.30-11.50) Prothromb Time International Ratio 1.0 (0.9-1.1) Activated Partial Thromboplast Time 31 SEC (23-33) Sodium Level 141 MMOL/L (136-145) Potassium Level 3.7 MMOL/L (3.5-5.1) Chloride Level 105 MMOL/L (98-107) Carbon Dioxide Level 24 MMOL/L (21-32) Anion Gap 12 mmol/L (5-15) Blood Urea Nitrogen 34 mg/dL (7-18) H Creatinine 2.6 MG/DL (0.55-1.30) H Estimat Glomerular Filtration Rate 23.9 mL/min (>60) Glucose Level 89 MG/DL (74-106) Calcium Level 8.4 MG/DL (8.5-10.1) L Phosphorus Level 3.4 MG/DL (2.5-4.9) Magnesium Level 2.1 MG/DL (1.8-2.4) Iron Level 30 ug/dL (50-175) L Total Iron Binding Capacity 255 ug/dL (250-450) Percent Iron Saturation 12 % (15-50) L Unsaturated Iron Binding 225 ug/dL (112-346) Lactate Dehydrogenase 335 U/L (81-234) H Pro-B-Type Natriuretic Peptide > 63837 pg/mL (0-125) H Triglycerides Level 58 MG/DL (30-150) Cholesterol Level 126 MG/DL (< 200) LDL Cholesterol 114 mg/dL (<100) H HDL Cholesterol 64 MG/DL (40-60) H Cholesterol/HDL Ratio 2.0 (3.3-4.4) L Carcinoembryonic Antigen Pending Vitamin B12 Level 599 PG/ML (193-986) Folate 17.1 NG/ML (8.6-58.9) Stool Occult Blood Positive (NEGATIVE) Intake and Output 04/05/18 04/06/18 19:00 07:00 Intake Total 1160 ml Balance 1160 ml IV Total 360 ml Other 800 ml # Voids 3 # Bowel Movements 1 Objective PHYSICAL EXAMINATION: GENERAL: The patient is a well-developed and well-nourished female, in no apparent distress. HEENT: Eyes, pupils equal and responsive to light and accommodation. Extraocular movements are intact. NECK: Supple without lymphadenopathy. CHEST: Few scattered crackles in the right lung field, otherwise clear to auscultation without wheezes or rales. CARDIOVASCULAR: Regular rate. S1 and S2 are normal without murmurs, rubs, or gallops. ABDOMEN: Soft, nontender, and nondistended. Positive bowel sounds. No evidence of hepatosplenomegaly. Currently, no rebound or guarding noted. EXTREMITIES: Negative for clubbing, cyanosis, or edema. RECTAL: Refused. GENITAL: Refused. NEUROLOGIC: Cranial nerves II through XII are grossly intact without focal deficits. Motor strength is 5/5 bilaterally. Deep tendon reflexes are 2+ plantar. Assessment/Plan Problem List: (1) HTN (hypertension) Assessment & Plan: Continue losartan (2) Renal failure (3) Colostomy status (4) Pneumonia, community acquired Assessment & Plan: Continue ceftriaxone per ID (5) Incisional hernia Assessment & Plan: Non incarcerated or strangulated. See Surgery note. (6) Crohn disease (7) Cardiomyopathy, nonischemic (8) CHF (congestive heart failure) Assessment & Plan: See cardiology note. Status: progressing Be Morfin MD Apr 06, 2018 14:50
[2018-04-06] MEDS: cloNIDine 0.2mg Tab ORAL PRN ×2 (15:07→21:36)
[2018-04-06 15:39] LABS: BASOPHILS % (AUTO) 0.6 % (0.0-2.0); HEMATOCRIT 33.6 % (37.0-47.0); LYMPHOCYTES % (AUTO) 20.8 % (20.0-45.0); MEAN CORPUSCULAR VOLUME 85 FL (80-99); NEUTROPHILS % (AUTO) 69.6 % (45.0-75.0); PLATELET COUNT 225 K/UL (150-450); RED BLOOD COUNT 3.96 M/UL (4.20-5.40); RED CELL DISTRIBUTION WIDTH 16.8 % (11.6-14.8); WHITE BLOOD COUNT 5.4 K/UL (4.8-10.8)
[2018-04-06 15:48] LABS: ANION GAP 9 mmol/L (5-15); BLOOD UREA NITROGEN 34 mg/dL (7-18); CALCIUM 8.5 MG/DL (8.5-10.1); CARBON DIOXIDE 28 MMOL/L (21-32); CHLORIDE 106 MMOL/L (98-107); CREATININE 2.6 MG/DL (0.55-1.30); POTASSIUM 4.2 MMOL/L (3.5-5.1); SODIUM 143 MMOL/L (136-145)
--- NOTE | 2018-04-06 15:50 | Diagnostic Imaging Report ---
EXAM: US Abdomen Complete CLINICAL HISTORY: RENAL-A TECHNIQUE: Real-time ultrasound of the abdomen (complete) with image documentation. COMPARISON: No relevant prior studies available. FINDINGS: Liver: Hyperechoic lesions in the right lobe of the liver that measure 2.7 x 3.0 x 2.7 cm. Another echogenic focus measuring 2.9 x 1.8 x 2.5 cm. These may be hemangiomas. No intrahepatic bile duct dilation. Kidneys: Bilateral echogenic renal cortex that may be medical renal disease. Mild right hydronephrosis. Slightly prominent left renal cortex, with a punctate hyperechoic focus that may be nonobstructing stone. Right kidney measures 12.1 x 3.2 x 6.9 cm. Echogenic renal cortex. Left kidney measures 10.1 x 5.6 x 5.5 cm. Echogenic renal cortex. Punctate hyperechoic focus left kidney. Spleen: Unremarkable. No splenomegaly. Aorta: Unremarkable. No aneurysm. Inferior vena cava: Unremarkable. Pleural space: Trace bilateral pleural effusions. Other findings: Bilateral ureteral jets are seen. IMPRESSION: 1. Bilateral echogenic renal cortex that may be medical renal disease. 2. Mild right hydronephrosis. 3. Slightly prominent left renal cortex, with a punctate hyperechoic focus that may be nonobstructing stone. 4. Trace bilateral pleural effusions. 5. Hyperechoic lesions in the right lobe of the liver. These may be hemangiomas.
[2018-04-06] MEDS: Morphine Sulfate 2mg/ml Inj IVP PRN (18:58)
[2018-04-06] MEDS ORDERED: Losartan 50mg tab ORAL SCH (21:00)
[2018-04-06] MEDS ORDERED: Albuterol ud Inhalation ONE (23:27)
[2018-04-07] VITALS: BP 148/103
[2018-04-07] MEDS ORDERED: Albuterol ud Inhalation HHN PRN (02:00)
[2018-04-07 03:57] VITALS: BP 149/115
[2018-04-07] MEDS ORDERED: Heparin 5000 units/ml inj SUBQ SCH (06:00)
--- NOTE | 2018-04-07 08:09 | Pulmonology Progress Note ---
Assessment/Plan Assessment/Plan ASSESSMENT right lower lobe pneumonia incisional ventral hernia HTN urgency systolic heart failure nonischemic cardiomyopathy with EF 15-20% moderate MR moderate pulmonary HTN probable UTI chronic renal failure hypokalemia anemia Crohn's disease s/p colostomy anxiety PLAN OF CARE tele abx, fup with cx O2 prn to keep sat above 92%, pulmonary toilet ATC + prn antitussive prn fup with CXR DVT prophylaxis monitor renal parameters and electrolytes , replace electrolytes as needed , avoid nephrotoxic renal US with evidence of probable medical renal dsiease, mild R hydro hernia reducible, per surgeon can be repaired electively if remains reducible cardio follows ECHO with EF 15-20%, moderate MR and RVSP of 43 c/w moderate pulmonary HTN anti-failure regimen - per cardio recs on maintenance dose of diuretic Lasix/ Aldactone, BB, ARB close monitoring of volumes and cardiorenal parameters , currently euvolemic BP management with CCB and BB, Clonidine prn, further optimization as per cardio transferred to tele for close monitoring records from previous hospitalization requested as per cardio colostomy care GI prophylaxis PT/OT Pain management case discussed and evaluated by supervising physician Subjective Allergies: Coded Allergies: SULFA (SULFONAMIDE ANTIBIOTICS) (Verified Allergy, Severe, 04/04/18) Subjective much less congestion , + dry cough, wheezing resolved no chest pain transferred last night to telemetry per cardio due to uncontrolled BP Objective Last 24 Hour Vital Signs Date Time Temp Pulse Resp B/P (MAP) Pulse Ox O2 Delivery O2 Flow Rate FiO2 04/07/18 04:00 81 04/07/18 03:57 97.3 83 24 149/115 (126) 94 97.3 04/07/18 00:00 80 04/07/18 00:00 97.7 81 24 148/103 (118) 94 97.7 04/06/18 23:46 86 22 97 Nasal Cannula 4.0 36 04/06/18 23:36 85 24 92 Nasal Cannula 3.0 32 04/06/18 22:00 Nasal Cannula 2.0 04/06/18 22:00 98.8 92 22 158/120 (133) 92 98.8 04/06/18 21:37 86 164/118 04/06/18 21:36 164/118 04/06/18 21:36 164/118 04/06/18 20:00 98.1 86 20 164/118 (133) 91 98.1 04/06/18 19:49 65 22 97 Nasal Cannula 4.0 36 04/06/18 19:43 61 24 Nasal Cannula 4.0 36 04/06/18 19:39 Nasal Cannula 4.0 36 04/06/18 19:39 62 24 95 Nasal Cannula 4.0 36 04/06/18 19:39 95 Nasal Cannula 4.0 36 04/06/18 18:54 98.4 91 20 168/125 (139) 96 98.4 04/06/18 16:00 98.3 84 20 173/126 (142) 96 98.3 04/06/18 15:07 174/127 04/06/18 13:19 89 18 100 Nasal Cannula 2.0 28 04/06/18 13:12 82 18 98 Nasal Cannula 2.0 28 04/06/18 12:55 98.4 82 20 161/124 (136) 96 98.4 04/06/18 09:00 Room Air 04/06/18 08:36 84 158/108 04/06/18 08:36 84 158/108 04/06/18 08:22 84 18 99 Nasal Cannula 2.0 28 04/06/18 08:17 98.8 82 18 158/108 (125) 98 98.8 04/06/18 08:12 79 18 98 Nasal Cannula 2.0 28 04/06/18 08:05 79 18 Room Air Intake and Output 04/06/18 04/07/18 19:00 07:00 Intake Total 175 ml 120 ml Balance 175 ml 120 ml Intake Oral 120 ml 120 ml IV Total 55 ml # Voids 2 2 Objective General Appearance: no acute distress HEENT: normocephalic, atraumatic, anicteric Respiratory/Chest: chest wall non-tender, few scattered crackles at bases , Cardiovascular: normal peripheral pulses, normal rate Abdomen: normal bowel sounds, soft, non tender, other - colostomy with brown color output Extremities: no edema, pedal pulses normal Neurologic/Psychiatric: abnormal gait, alert, oriented x 3, responsive Laboratory Tests 04/06/18 15:20: White Blood Count 5.4, Red Blood Count 3.96L, Hemoglobin 10.0L, Hematocrit 33.6L , Mean Corpuscular Volume 85, Mean Corpuscular Hemoglobin 25.2L, Mean Corpuscular Hemoglobin Concent 29.7L, Red Cell Distribution Width 16.8H, Platelet Count 225, Mean Platelet Volume 7.0, Neutrophils (%) (Auto) 69.6, Lymphocytes (%) (Auto) 20.8, Monocytes (%) (Auto) 7.0, Eosinophils (%) (Auto) 2.0, Basophils (%) (Auto) 0.6, Sodium Level 143, Potassium Level 4.2, Chloride Level 106, Carbon Dioxide Level 28, Anion Gap 9, Blood Urea Nitrogen 34H, Creatinine 2.6H, Estimat Glomerular Filtration Rate 23.9, Glucose Level 97, Calcium Level 8.5 Current Medications Medications (Trade) Dose Ordered Sig/Georges Route PRN Reason Start Time Stop Time Status Last Admin Dose Admin Acetaminophen (Tylenol) 650 mg Q4H PRN ORAL Mild Pain (Pain Scale 1-3) 04/07/18 02:00 05/04/18 17:59 Acetaminophen (Tylenol) 650 mg Q4H PRN ORAL fever 04/07/18 02:00 05/04/18 17:59 Albuterol Sulfate (Proventil) 2.5 mg Q4H PRN HHN Shortness of Breath 04/07/18 02:00 04/09/18 17:59 04/06/18 23:34 Albuterol/ Ipratropium (Albuterol/ Ipratropium) 3 ml TIDRT HHN 04/07/18 07:00 04/11/18 12:59 Carvedilol (Coreg) 25 mg EVERY 12 HOURS ORAL 04/07/18 09:00 05/04/18 20:59 Ceftriaxone Sodium 1 gm/ Dextrose 55 ml @ 110 mls/hr DAILY IV 04/07/18 09:00 04/12/18 08:59 Clonidine HCl (Catapres tab) 0.2 mg Q3H PRN ORAL For High Blood Pressure 04/06/18 23:45 05/06/18 14:44 Furosemide (Lasix) 20 mg DAILY ORAL 04/07/18 09:00 05/05/18 15:29 Heparin Sodium (Porcine) (Heparin 5000 units/ml) 5,000 units EVERY 8 HOURS SUBQ 04/07/18 06:00 05/05/18 21:59 04/07/18 06:10 Losartan Potassium (Cozaar) 50 mg EVERY 12 HOURS ORAL 04/07/18 09:00 05/06/18 20:59 Mirtazapine (Remeron) 7.5 mg QHS ORAL 04/07/18 21:00 05/05/18 20:59 Morphine Sulfate (Morphine Sulfate) 2 mg Q4H PRN IVP Moderate Pain (Pain Scale 4-6) 04/07/18 02:00 04/11/18 17:59 Ondansetron HCl (Zofran) 4 mg Q4H PRN IVP Nausea & Vomiting 04/07/18 02:00 05/04/18 17:59 Pantoprazole (Protonix) 40 mg DAILY ORAL 04/07/18 09:00 05/05/18 08:59 Promethazine HCl/ Codeine (Phenergan with Codeine) 5 ml Q4H PRN ORAL For Cough 04/06/18 23:15 05/06/18 11:13 Spironolactone (Aldactone) 25 mg DAILY ORAL 04/07/18 09:00 05/07/18 08:59 Temazepam (Restoril) 15 mg HSPRN PRN ORAL Insomnia 04/07/18 21:00 04/11/18 20:59 Kerri De La Vega DRY PAN CHARGER Apr 07, 2018 08:09
[2018-04-07] MEDS: Albuterol/Ipratropium 3ml neb HHN SCH ×3 (08:30→19:43)
[2018-04-07 08:39] VITALS: BP 165/117
[2018-04-07] MEDS ORDERED: Spironolactone 25mg tab ORAL SCH ×2 (09:00)
[2018-04-07] MEDS ORDERED: cefTRIAXone 1 GM in D5W 55 ML IV SCH (09:00)
[2018-04-07] MEDS: Carvedilol 25mg Tab ORAL SCH ×2 (09:06→21:06)
[2018-04-07] MEDS: Furosemide 40mg tab ORAL SCH (09:07)
[2018-04-07] MEDS: Losartan 50mg tab ORAL SCH ×2 (09:07→21:06)
[2018-04-07] MEDS ORDERED: Albuterol/Ipratropium 3ml neb HHN PRN (10:11)
[2018-04-07] MEDS: Promethazine/Codeine 5ml UD ORAL PRN ×2 (11:35→21:28)
[2018-04-07 11:40] VITALS: BP 147/112
[2018-04-07] MEDS ORDERED: NS 275ml ONE (14:56)
[2018-04-07] MEDS ORDERED: Tubing IV Secondary IV ONE (14:56)
--- NOTE | 2018-04-07 15:20 | Internal Med Progress Note ---
Subjective Physician Name Buddy Arceo Attending Physician Buddy Arceo MD Current Medications Medications (Trade) Dose Ordered Sig/Georges Route PRN Reason Start Time Stop Time Status Last Admin Dose Admin Acetaminophen (Tylenol) 650 mg Q4H PRN ORAL Mild Pain (Pain Scale 1-3) 04/07/18 02:00 05/04/18 17:59 Acetaminophen (Tylenol) 650 mg Q4H PRN ORAL fever 04/07/18 02:00 05/04/18 17:59 Albuterol/ Ipratropium (Albuterol/ Ipratropium) 3 ml Q4H PRN HHN Shortness of Breath 04/07/18 10:11 04/12/18 10:10 Albuterol/ Ipratropium (Albuterol/ Ipratropium) 3 ml TIDRT HHN 04/07/18 07:00 04/11/18 12:59 04/07/18 13:27 Carvedilol (Coreg) 25 mg EVERY 12 HOURS ORAL 04/07/18 09:00 05/04/18 20:59 04/07/18 09:06 Ceftriaxone Sodium 1 gm/ Dextrose 55 ml @ 110 mls/hr DAILY IV 04/07/18 09:00 04/12/18 08:59 04/07/18 09:06 Clonidine HCl (Catapres tab) 0.2 mg Q3H PRN ORAL For High Blood Pressure 04/06/18 23:45 05/06/18 14:44 Furosemide (Lasix) 40 mg DAILY ORAL 04/07/18 09:00 05/05/18 15:29 04/07/18 09:07 Hydralazine HCl (Apresoline) 25 mg Q8HR ORAL 04/07/18 22:00 05/07/18 21:59 Losartan Potassium (Cozaar) 50 mg EVERY 12 HOURS ORAL 04/07/18 09:00 05/06/18 20:59 04/07/18 09:07 Mirtazapine (Remeron) 7.5 mg QHS ORAL 04/07/18 21:00 05/05/18 20:59 Morphine Sulfate (Morphine Sulfate) 2 mg Q4H PRN IVP Moderate Pain (Pain Scale 4-6) 04/07/18 02:00 04/11/18 17:59 Ondansetron HCl (Zofran) 4 mg Q4H PRN IVP Nausea & Vomiting 04/07/18 02:00 05/04/18 17:59 Pantoprazole (Protonix) 40 mg DAILY ORAL 04/07/18 09:00 05/05/18 08:59 04/07/18 09:06 Promethazine HCl/ Codeine (Phenergan with Codeine) 5 ml Q4H PRN ORAL For Cough 04/06/18 23:15 05/06/18 11:13 04/07/18 11:35 Spironolactone (Aldactone) 25 mg DAILY ORAL 04/07/18 09:00 05/07/18 08:59 04/07/18 09:07 Temazepam (Restoril) 15 mg HSPRN PRN ORAL Insomnia 04/07/18 21:00 04/11/18 20:59 Allergies: Coded Allergies: SULFA (SULFONAMIDE ANTIBIOTICS) (Verified Allergy, Severe, 04/04/18) Subjective awake, alert, responsive, worsening SOB, No CP, Less cough Objective Last Vital Signs Date Time Temp Pulse Resp B/P (MAP) Pulse Ox O2 Delivery O2 Flow Rate FiO2 04/07/18 13:37 75 20 97 Nasal Cannula 4.0 36 04/07/18 11:40 98.1 147/112 (124) 98.1 Laboratory Tests Test 04/06/18 15:20 04/07/18 06:30 White Blood Count 5.4 K/UL (4.8-10.8) Red Blood Count 3.96 M/UL (4.20-5.40) L Hemoglobin 10.0 G/DL (12.0-16.0) L Hematocrit 33.6 % (37.0-47.0) L Mean Corpuscular Volume 85 FL (80-99) Mean Corpuscular Hemoglobin 25.2 PG (27.0-31.0) L Mean Corpuscular Hemoglobin Concent 29.7 G/DL (32.0-36.0) L Red Cell Distribution Width 16.8 % (11.6-14.8) H Platelet Count 225 K/UL (150-450) Mean Platelet Volume 7.0 FL (6.5-10.1) Neutrophils (%) (Auto) 69.6 % (45.0-75.0) Lymphocytes (%) (Auto) 20.8 % (20.0-45.0) Monocytes (%) (Auto) 7.0 % (1.0-10.0) Eosinophils (%) (Auto) 2.0 % (0.0-3.0) Basophils (%) (Auto) 0.6 % (0.0-2.0) Sodium Level 143 MMOL/L (136-145) Potassium Level 4.2 MMOL/L (3.5-5.1) Chloride Level 106 MMOL/L (98-107) Carbon Dioxide Level 28 MMOL/L (21-32) Anion Gap 9 mmol/L (5-15) Blood Urea Nitrogen 34 mg/dL (7-18) H Creatinine 2.6 MG/DL (0.55-1.30) H Estimat Glomerular Filtration Rate 23.9 mL/min (>60) Glucose Level 97 MG/DL (74-106) Calcium Level 8.5 MG/DL (8.5-10.1) Pro-B-Type Natriuretic Peptide > 10937 pg/mL (0-125) H Microbiology Date/Time Source Procedure Growth Status 04/05/18 00:20 Urine,Clean Catch Urine Culture - Preliminary Streptococcus Species Resulted Intake and Output 04/06/18 04/07/18 19:00 07:00 Intake Total 175 ml 120 ml Balance 175 ml 120 ml Intake Oral 120 ml 120 ml IV Total 55 ml # Voids 2 2 Objective General: No acute distress, awake and alert HEENT: NCAT, sclera anicteric, PERRL, EOMI. Neck: Supple, no significant jugular venous distention, Lungs: Good inspiratory effort, decrease air on bases bilaterally, no Wheeze or Rales. Heart: Regular rate and rhythm, normal S1/S2, no murmurs Abdomen: soft, nontender, nondistended. Normoactive bowel sounds, mild obesity. / Rectal: Refused and deferred. Extremities: No Cyanosis , clubbing or edema. Neuro: A&O x 3, Able to move all extremities Skin: warm, no rashes or lesions Psych: Normal mood and affect Assessment/Plan Assessment/Plan 1. Right middle lobe pneumonia. 2. Incisional hernia. 3. Acute on chronic Congestive heart failure with systolic dysfunction, EFrEF. 4. Hypertension. 5. Crohn's disease. 6. Chronic Renal failure. 7. Severe cardiomyopathy. 2D Echo: Severe left ventricular enlargement. Severe global left ventricular hypokinesis. Left ventricular ejection fraction estimated to be 15-20 %. Mild left ventricular hypertrophy. Small posterior pericardial effusion. Moderate left atrial enlargement. Mild right atrial enlargement. Mild right ventricular enlargement. Mild focal aortic valve sclerosis with adequate cusp excursion. Mild aortic root dilatation. Thickened mitral valve leaflets with normal excursion. Mitral annulus and aortic root calcification. Pulmonic valve not well visualized. Normal tricuspid valve structure. IVC dilated at 3.0 cm without physiologic collapse suggestive of increased RA pressure. A color flow and spectral Doppler study was performed and revealed: Trace aortic regurgitation. Moderate posteriorly eccentric mitral regurgitation. Mitral diastolic velocities suggest reduced left ventricular relaxation c/w mild LV diastolic dysfunction (Grade I ). Moderate tricuspid regurgitation. Tricuspid systolic velocities suggests peak right ventricular systolic pressure of 43 mmHg, consistent with mild to moderate pulmonary hypertension. Pulmonic regurgitation present. TREATMENT: Abx: ceftriaxone and azithromycin. Pulmonary consultation with Dr. Jeanna Andrade. Lasix IV Monitor Labs Full code Heparin SQ DC planning soon. Buddy Arceo MD Apr 07, 2018 15:20
[2018-04-07 16:03] VITALS: BP 161/122
[2018-04-07] MEDS: Morphine Sulfate 2mg/ml Inj IVP PRN ×2 (17:34→21:36)
[2018-04-07 20:00] VITALS: BP 163/120
[2018-04-07] MEDS: cloNIDine 0.2mg Tab ORAL PRN (21:04)
[2018-04-07] MEDS: HydrALAZINE 25mg tab ORAL SCH (21:04)
[2018-04-08] VITALS: BP 144/108
[2018-04-08 04:00] VITALS: BP 129/79
[2018-04-08 06:24] VITALS: BP 157/119
[2018-04-08] MEDS: Promethazine/Codeine 5ml UD ORAL PRN (06:28)
[2018-04-08] MEDS: HydrALAZINE 25mg tab ORAL SCH (06:29)
[2018-04-08] MEDS: cloNIDine 0.2mg Tab ORAL PRN (06:29)
[2018-04-08] MEDS: Morphine Sulfate 2mg/ml Inj IVP PRN (06:42)
--- NOTE | 2018-04-08 07:46 | Infectious Diseases Prog Note ---
Assessment/Plan Assessment/Plan Respiratory distress - Improving 04/05/18 CXR - No evidence of PNA No Leukocytosis Fevers (home) - Resolved Positive UA Asymptomatic Urine Cx Strep Would not treat specifically at this time Crohns HTN CHF Incisional Hernia Colectomy with colostomy 2015 Oophorectomy PLAN: - Stop Ceftriaxone #4 - Will finish a 7 day course with Azithromycin - 04/05 SP Azithromycin x 1 - Monitor CBC and Temps - Supportive care We will continue to follow the patient during this hospitalization. Subjective Allergies: Coded Allergies: SULFA (SULFONAMIDE ANTIBIOTICS) (Verified Allergy, Severe, 04/04/18) Subjective Patient stable and afebrile No acute events Objective Vital Signs Last 24 Hour Vital Signs Date Time Temp Pulse Resp B/P (MAP) Pulse Ox O2 Delivery O2 Flow Rate FiO2 04/08/18 06:29 157/119 04/08/18 06:29 157/119 04/08/18 06:24 78 157/119 (132) 04/08/18 04:00 97.3 74 20 129/79 (96) 93 97.3 04/08/18 04:00 70 04/08/18 00:00 97.8 80 22 144/108 (120) 94 97.8 04/08/18 00:00 80 04/07/18 21:06 163/120 04/07/18 21:06 86 163/120 04/07/18 21:04 163/120 04/07/18 21:04 163/120 04/07/18 21:00 Nasal Cannula 2.0 04/07/18 20:00 85 04/07/18 20:00 97.9 86 24 163/120 (134) 97 97.9 04/07/18 19:46 92 20 96 Nasal Cannula 3.0 32 04/07/18 19:45 Nasal Cannula 3.0 32 04/07/18 19:44 93 Nasal Cannula 3.0 32 04/07/18 19:35 90 20 93 Nasal Cannula 3.0 32 04/07/18 17:34 99.3 04/07/18 16:03 99.3 76 20 161/122 (135) 100 99.3 04/07/18 16:00 78 04/07/18 13:37 75 20 97 Nasal Cannula 4.0 36 04/07/18 13:28 77 20 92 Nasal Cannula 4.0 36 04/07/18 12:00 75 04/07/18 11:40 98.1 76 20 147/112 (124) 100 98.1 04/07/18 10:09 Nasal Cannula 2.0 04/07/18 09:07 165/117 04/07/18 09:06 82 165/117 04/07/18 08:39 96.8 82 20 165/117 (133) 91 96.8 04/07/18 08:30 77 18 93 Nasal Cannula 4.0 36 04/07/18 08:15 81 20 92 Nasal Cannula 4.0 36 04/07/18 08:15 92 Nasal Cannula 4.0 36 04/07/18 08:15 Nasal Cannula 4.0 36 04/07/18 08:00 80 Height (Feet): 5 Height (Inches): 5.00 Weight (Pounds): 193 Objective Gen: NAD, well appearing, alert, On 2L NC HEENT: NCAT, MMM, EOMI, LUNGS: CTAB, No W/C, No Accessory muscle use CARDS: RRR, S1, S2, No M/R/G ABD: Soft, NT, ND, No R/G, + BS, Colostomy tube Ext: C/C/E, Pulses 2+ B/L (DP, Rad), Right foot with healing ulceration and minimal surrounding erythema. NEURO: A/O x 4, Strength and Sensation Grossly intact , Current Medications Medications (Trade) Dose Ordered Sig/Georges Route PRN Reason Start Time Stop Time Status Last Admin Dose Admin Acetaminophen (Tylenol) 650 mg Q4H PRN ORAL Mild Pain (Pain Scale 1-3) 04/07/18 02:00 05/04/18 17:59 Acetaminophen (Tylenol) 650 mg Q4H PRN ORAL fever 04/07/18 02:00 05/04/18 17:59 Albuterol/ Ipratropium (Albuterol/ Ipratropium) 3 ml Q4H PRN HHN Shortness of Breath 04/07/18 10:11 04/12/18 10:10 Albuterol/ Ipratropium (Albuterol/ Ipratropium) 3 ml TIDRT HHN 04/07/18 07:00 04/11/18 12:59 04/07/18 19:43 Carvedilol (Coreg) 25 mg EVERY 12 HOURS ORAL 04/07/18 09:00 05/04/18 20:59 04/07/18 21:06 Ceftriaxone Sodium 1 gm/ Dextrose 55 ml @ 110 mls/hr DAILY IV 04/07/18 09:00 04/12/18 08:59 04/07/18 09:06 Clonidine HCl (Catapres tab) 0.2 mg Q3H PRN ORAL For High Blood Pressure 04/06/18 23:45 05/06/18 14:44 04/08/18 06:29 Furosemide (Lasix) 40 mg DAILY ORAL 04/07/18 09:00 05/05/18 15:29 04/07/18 09:07 Hydralazine HCl (Apresoline) 25 mg Q8HR ORAL 04/07/18 22:00 05/07/18 21:59 04/08/18 06:29 Losartan Potassium (Cozaar) 50 mg EVERY 12 HOURS ORAL 04/07/18 09:00 05/06/18 20:59 04/07/18 21:06 Mirtazapine (Remeron) 7.5 mg QHS ORAL 04/07/18 21:00 05/05/18 20:59 Morphine Sulfate (Morphine Sulfate) 2 mg Q4H PRN IVP Moderate Pain (Pain Scale 4-6) 04/07/18 02:00 04/11/18 17:59 04/08/18 06:42 Ondansetron HCl (Zofran) 4 mg Q4H PRN IVP Nausea & Vomiting 04/07/18 02:00 05/04/18 17:59 Pantoprazole (Protonix) 40 mg DAILY ORAL 04/07/18 09:00 05/05/18 08:59 04/07/18 09:06 Promethazine HCl/ Codeine (Phenergan with Codeine) 5 ml Q4H PRN ORAL For Cough 04/06/18 23:15 05/06/18 11:13 04/08/18 06:28 Temazepam (Restoril) 15 mg HSPRN PRN ORAL Insomnia 04/07/18 21:00 04/11/18 20:59 04/07/18 21:05 Royal Jara MD Apr 08, 2018 07:46
[2018-04-08 08:00] VITALS: BP 136/99
[2018-04-08 08:03] LABS: BASOPHILS % (AUTO) 0.6 % (0.0-2.0); EOSINOPHILS % (AUTO) 2.4 % (0.0-3.0); HEMATOCRIT 28.4 % (37.0-47.0); HEMOGLOBIN 8.6 G/DL (12.0-16.0); LYMPHOCYTES % (AUTO) 26.4 % (20.0-45.0); MEAN CORPUSCULAR VOLUME 84 FL (80-99); MONOCYTES % (AUTO) 6.7 % (1.0-10.0); NEUTROPHILS % (AUTO) 63.9 % (45.0-75.0); PLATELET COUNT 195 K/UL (150-450); RED BLOOD COUNT 3.38 M/UL (4.20-5.40); RED CELL DISTRIBUTION WIDTH 16.4 % (11.6-14.8); WHITE BLOOD COUNT 6.1 K/UL (4.8-10.8)
[2018-04-08] MEDS: Albuterol/Ipratropium 3ml neb HHN SCH ×2 (08:33→13:10)
[2018-04-08] MEDS: Furosemide 40mg tab ORAL SCH (08:48)
[2018-04-08] MEDS: Carvedilol 25mg Tab ORAL SCH (08:48)
[2018-04-08] MEDS: Losartan 50mg tab ORAL SCH (08:49)
[2018-04-08 09:43] LABS: ANION GAP 7 mmol/L (5-15); BLOOD UREA NITROGEN 36 mg/dL (7-18); CARBON DIOXIDE 28 MMOL/L (21-32); CHLORIDE 104 MMOL/L (98-107); CREATININE 2.4 MG/DL (0.55-1.30); POTASSIUM 3.6 MMOL/L (3.5-5.1); SODIUM 139 MMOL/L (136-145)
[2018-04-08 09:49] LABS: PHOSPHORUS 3.5 MG/DL (2.5-4.9)
--- NOTE | 2018-04-08 10:59 | General Progress Note ---
Assessment/Plan Status: stable Assessment/Plan Anxiety d/o Insomnia Cont Remeron left script in chart Subjective Date patient seen: Apr 08, 2018 Neurologic/Psychiatric: Reports: anxiety Allergies: Coded Allergies: SULFA (SULFONAMIDE ANTIBIOTICS) (Verified Allergy, Severe, 04/04/18) Subjective the pt is doing well sleeping is adequate Objective Last 24 Hour Vital Signs Date Time Temp Pulse Resp B/P (MAP) Pulse Ox O2 Delivery O2 Flow Rate FiO2 04/08/18 09:37 Nasal Cannula 2.0 04/08/18 08:49 136/99 04/08/18 08:48 71 136/99 04/08/18 08:39 71 20 98 Nasal Cannula 3.0 32 04/08/18 08:31 Nasal Cannula 3.0 32 04/08/18 08:31 74 20 98 Nasal Cannula 3.0 32 04/08/18 08:31 98 Nasal Cannula 3.0 32 04/08/18 08:00 74 04/08/18 08:00 97.9 80 20 136/99 (111) 93 97.9 04/08/18 07:12 97.9 04/08/18 06:29 157/119 04/08/18 06:29 157/119 04/08/18 06:24 78 157/119 (132) 04/08/18 04:00 97.3 74 20 129/79 (96) 93 97.3 04/08/18 04:00 70 04/08/18 00:00 97.8 80 22 144/108 (120) 94 97.8 04/08/18 00:00 80 04/07/18 21:06 163/120 04/07/18 21:06 86 163/120 04/07/18 21:04 163/120 04/07/18 21:04 163/120 04/07/18 21:00 Nasal Cannula 2.0 04/07/18 20:00 85 04/07/18 20:00 97.9 86 24 163/120 (134) 97 97.9 04/07/18 19:46 92 20 96 Nasal Cannula 3.0 32 04/07/18 19:45 Nasal Cannula 3.0 32 04/07/18 19:44 93 Nasal Cannula 3.0 32 04/07/18 19:35 90 20 93 Nasal Cannula 3.0 32 04/07/18 17:34 99.3 04/07/18 16:03 99.3 76 20 161/122 (135) 100 99.3 04/07/18 16:00 78 04/07/18 13:37 75 20 97 Nasal Cannula 4.0 36 04/07/18 13:28 77 20 92 Nasal Cannula 4.0 36 04/07/18 12:00 75 04/07/18 11:40 98.1 76 20 147/112 (124) 100 98.1 Intake and Output 04/07/18 04/08/18 19:00 07:00 Intake Total 720 ml 200 ml Output Total 500 ml Balance 220 ml 200 ml Intake Oral 720 ml 200 ml Output Urine Total 500 ml # Voids 2 2 Laboratory Tests 04/08/18 06:15: White Blood Count 6.1, Red Blood Count 3.38L, Hemoglobin 8.6L, Hematocrit 28.4L , Mean Corpuscular Volume 84, Mean Corpuscular Hemoglobin 25.6L, Mean Corpuscular Hemoglobin Concent 30.5L, Red Cell Distribution Width 16.4H, Platelet Count 195, Mean Platelet Volume 7.1, Neutrophils (%) (Auto) 63.9, Lymphocytes (%) (Auto) 26.4, Monocytes (%) (Auto) 6.7, Eosinophils (%) (Auto) 2.4, Basophils (%) (Auto) 0.6, Sodium Level 139, Potassium Level 3.6, Chloride Level 104, Carbon Dioxide Level 28, Anion Gap 7, Blood Urea Nitrogen 36H, Creatinine 2.4H, Estimat Glomerular Filtration Rate 26.1, Glucose Level 88, Calcium Level 8.0L, Phosphorus Level 3.5, Magnesium Level 2.0 Height (Feet): 5 Height (Inches): 5.00 Weight (Pounds): 193 General Appearance: no apparent distress, alert Neurologic: oriented x 3, responsive, depressed affect Andrew Mosley MD Apr 08, 2018 10:59
--- NOTE | 2018-04-08 11:02 | Psych Consult Progress Note ---
Psych Consult Progress Note Consult 04/08 Anxiety d/o Insomnia Cont Remeron left script in chart Vital Signs Last 24 Hour Vital Signs Date Time Temp Pulse Resp B/P (MAP) Pulse Ox O2 Delivery O2 Flow Rate FiO2 04/08/18 09:37 Nasal Cannula 2.0 04/08/18 08:49 136/99 04/08/18 08:48 71 136/99 04/08/18 08:39 71 20 98 Nasal Cannula 3.0 32 04/08/18 08:31 Nasal Cannula 3.0 32 04/08/18 08:31 74 20 98 Nasal Cannula 3.0 32 04/08/18 08:31 98 Nasal Cannula 3.0 32 04/08/18 08:00 74 04/08/18 08:00 97.9 80 20 136/99 (111) 93 97.9 04/08/18 07:12 97.9 04/08/18 06:29 157/119 04/08/18 06:29 157/119 04/08/18 06:24 78 157/119 (132) 04/08/18 04:00 97.3 74 20 129/79 (96) 93 97.3 04/08/18 04:00 70 04/08/18 00:00 97.8 80 22 144/108 (120) 94 97.8 04/08/18 00:00 80 04/07/18 21:06 163/120 04/07/18 21:06 86 163/120 04/07/18 21:04 163/120 04/07/18 21:04 163/120 04/07/18 21:00 Nasal Cannula 2.0 04/07/18 20:00 85 04/07/18 20:00 97.9 86 24 163/120 (134) 97 97.9 04/07/18 19:46 92 20 96 Nasal Cannula 3.0 32 04/07/18 19:45 Nasal Cannula 3.0 32 04/07/18 19:44 93 Nasal Cannula 3.0 32 04/07/18 19:35 90 20 93 Nasal Cannula 3.0 32 04/07/18 17:34 99.3 04/07/18 16:03 99.3 76 20 161/122 (135) 100 99.3 04/07/18 16:00 78 04/07/18 13:37 75 20 97 Nasal Cannula 4.0 36 04/07/18 13:28 77 20 92 Nasal Cannula 4.0 36 04/07/18 12:00 75 04/07/18 11:40 98.1 76 20 147/112 (124) 100 98.1 Labs Laboratory Tests Test 04/08/18 06:15 White Blood Count 6.1 K/UL (4.8-10.8) Red Blood Count 3.38 M/UL (4.20-5.40) L Hemoglobin 8.6 G/DL (12.0-16.0) L Hematocrit 28.4 % (37.0-47.0) L Mean Corpuscular Volume 84 FL (80-99) Mean Corpuscular Hemoglobin 25.6 PG (27.0-31.0) L Mean Corpuscular Hemoglobin Concent 30.5 G/DL (32.0-36.0) L Red Cell Distribution Width 16.4 % (11.6-14.8) H Platelet Count 195 K/UL (150-450) Mean Platelet Volume 7.1 FL (6.5-10.1) Neutrophils (%) (Auto) 63.9 % (45.0-75.0) Lymphocytes (%) (Auto) 26.4 % (20.0-45.0) Monocytes (%) (Auto) 6.7 % (1.0-10.0) Eosinophils (%) (Auto) 2.4 % (0.0-3.0) Basophils (%) (Auto) 0.6 % (0.0-2.0) Sodium Level 139 MMOL/L (136-145) Potassium Level 3.6 MMOL/L (3.5-5.1) Chloride Level 104 MMOL/L (98-107) Carbon Dioxide Level 28 MMOL/L (21-32) Anion Gap 7 mmol/L (5-15) Blood Urea Nitrogen 36 mg/dL (7-18) H Creatinine 2.4 MG/DL (0.55-1.30) H Estimat Glomerular Filtration Rate 26.1 mL/min (>60) Glucose Level 88 MG/DL (74-106) Calcium Level 8.0 MG/DL (8.5-10.1) L Phosphorus Level 3.5 MG/DL (2.5-4.9) Magnesium Level 2.0 MG/DL (1.8-2.4) Medications Current Medications Medications (Trade) Dose Ordered Sig/Georges Route PRN Reason Start Time Stop Time Status Last Admin Dose Admin Acetaminophen (Tylenol) 650 mg Q4H PRN ORAL Mild Pain (Pain Scale 1-3) 04/07/18 02:00 05/04/18 17:59 Acetaminophen (Tylenol) 650 mg Q4H PRN ORAL fever 04/07/18 02:00 05/04/18 17:59 Albuterol/ Ipratropium (Albuterol/ Ipratropium) 3 ml Q4H PRN HHN Shortness of Breath 04/07/18 10:11 04/12/18 10:10 Albuterol/ Ipratropium (Albuterol/ Ipratropium) 3 ml TIDRT HHN 04/07/18 07:00 04/11/18 12:59 04/08/18 08:33 Carvedilol (Coreg) 25 mg EVERY 12 HOURS ORAL 04/07/18 09:00 05/04/18 20:59 04/08/18 08:48 Clonidine HCl (Catapres tab) 0.2 mg Q3H PRN ORAL For High Blood Pressure 04/06/18 23:45 05/06/18 14:44 04/08/18 06:29 Furosemide (Lasix) 40 mg DAILY ORAL 04/07/18 09:00 05/05/18 15:29 04/08/18 08:48 Hydralazine HCl (Apresoline) 25 mg Q8HR ORAL 04/07/18 22:00 05/07/18 21:59 04/08/18 06:29 Losartan Potassium (Cozaar) 50 mg EVERY 12 HOURS ORAL 04/07/18 09:00 05/06/18 20:59 04/08/18 08:49 Mirtazapine (Remeron) 7.5 mg QHS ORAL 04/07/18 21:00 05/05/18 20:59 Morphine Sulfate (Morphine Sulfate) 2 mg Q4H PRN IVP Moderate Pain (Pain Scale 4-6) 04/07/18 02:00 04/11/18 17:59 04/08/18 06:42 Ondansetron HCl (Zofran) 4 mg Q4H PRN IVP Nausea & Vomiting 04/07/18 02:00 05/04/18 17:59 Pantoprazole (Protonix) 40 mg DAILY ORAL 04/07/18 09:00 05/05/18 08:59 04/08/18 08:48 Promethazine HCl/ Codeine (Phenergan with Codeine) 5 ml Q4H PRN ORAL For Cough 04/06/18 23:15 05/06/18 11:13 04/08/18 06:28 Temazepam (Restoril) 15 mg HSPRN PRN ORAL Insomnia 04/07/18 21:00 04/11/18 20:59 04/07/18 21:05 Andrew Mosley MD Apr 08, 2018 11:02
--- NOTE | 2018-04-08 11:08 | Pulmonology Progress Note ---
Assessment/Plan Problems: (1) Pneumonia, community acquired (2) Incisional hernia (3) Crohn disease (4) CHF (congestive heart failure) Assessment/Plan improving respiratory treatment dong better all noted dc planning close f/u as outpatient. Subjective ROS Limited/Unobtainable: No Constitutional: Reports: no symptoms HEENT: Repors: no symptoms Respiratory: Reports: no symptoms Allergies: Coded Allergies: SULFA (SULFONAMIDE ANTIBIOTICS) (Verified Allergy, Severe, 04/04/18) Objective Last 24 Hour Vital Signs Date Time Temp Pulse Resp B/P (MAP) Pulse Ox O2 Delivery O2 Flow Rate FiO2 04/08/18 09:37 Nasal Cannula 2.0 04/08/18 08:49 136/99 04/08/18 08:48 71 136/99 04/08/18 08:39 71 20 98 Nasal Cannula 3.0 32 04/08/18 08:31 Nasal Cannula 3.0 32 04/08/18 08:31 74 20 98 Nasal Cannula 3.0 32 04/08/18 08:31 98 Nasal Cannula 3.0 32 04/08/18 08:00 74 04/08/18 08:00 97.9 80 20 136/99 (111) 93 97.9 04/08/18 07:12 97.9 04/08/18 06:29 157/119 04/08/18 06:29 157/119 04/08/18 06:24 78 157/119 (132) 04/08/18 04:00 97.3 74 20 129/79 (96) 93 97.3 04/08/18 04:00 70 04/08/18 00:00 97.8 80 22 144/108 (120) 94 97.8 04/08/18 00:00 80 04/07/18 21:06 163/120 04/07/18 21:06 86 163/120 04/07/18 21:04 163/120 04/07/18 21:04 163/120 04/07/18 21:00 Nasal Cannula 2.0 04/07/18 20:00 85 04/07/18 20:00 97.9 86 24 163/120 (134) 97 97.9 04/07/18 19:46 92 20 96 Nasal Cannula 3.0 32 04/07/18 19:45 Nasal Cannula 3.0 32 9/23/18 19:44 93 Nasal Cannula 3.0 32 04/07/18 19:35 90 20 93 Nasal Cannula 3.0 32 04/07/18 17:34 99.3 04/07/18 16:03 99.3 76 20 161/122 (135) 100 99.3 04/07/18 16:00 78 04/07/18 13:37 75 20 97 Nasal Cannula 4.0 36 04/07/18 13:28 77 20 92 Nasal Cannula 4.0 36 04/07/18 12:00 75 04/07/18 11:40 98.1 76 20 147/112 (124) 100 98.1 Intake and Output 04/07/18 04/08/18 19:00 07:00 Intake Total 720 ml 200 ml Output Total 500 ml Balance 220 ml 200 ml Intake Oral 720 ml 200 ml Output Urine Total 500 ml # Voids 2 2 General Appearance: WD/WN HEENT: normocephalic, atraumatic, anicteric Respiratory/Chest: chest wall non-tender, lungs clear Breasts: no masses Cardiovascular: normal peripheral pulses, normal rate Abdomen: normal bowel sounds, soft, non tender Genitourinary: normal external genitalia Extremities: no clubbing Skin: no rash Laboratory Tests 04/08/18 06:15: White Blood Count 6.1, Red Blood Count 3.38L, Hemoglobin 8.6L, Hematocrit 28.4L , Mean Corpuscular Volume 84, Mean Corpuscular Hemoglobin 25.6L, Mean Corpuscular Hemoglobin Concent 30.5L, Red Cell Distribution Width 16.4H, Platelet Count 195, Mean Platelet Volume 7.1, Neutrophils (%) (Auto) 63.9, Lymphocytes (%) (Auto) 26.4, Monocytes (%) (Auto) 6.7, Eosinophils (%) (Auto) 2.4, Basophils (%) (Auto) 0.6, Sodium Level 139, Potassium Level 3.6, Chloride Level 104, Carbon Dioxide Level 28, Anion Gap 7, Blood Urea Nitrogen 36H, Creatinine 2.4H, Estimat Glomerular Filtration Rate 26.1, Glucose Level 88, Calcium Level 8.0L, Phosphorus Level 3.5, Magnesium Level 2.0 Current Medications Medications (Trade) Dose Ordered Sig/Georges Route PRN Reason Start Time Stop Time Status Last Admin Dose Admin Acetaminophen (Tylenol) 650 mg Q4H PRN ORAL Mild Pain (Pain Scale 1-3) 04/07/18 02:00 05/04/18 17:59 Acetaminophen (Tylenol) 650 mg Q4H PRN ORAL fever 04/07/18 02:00 05/04/18 17:59 Albuterol/ Ipratropium (Albuterol/ Ipratropium) 3 ml Q4H PRN HHN Shortness of Breath 04/07/18 10:11 04/12/18 10:10 Albuterol/ Ipratropium (Albuterol/ Ipratropium) 3 ml TIDRT HHN 04/07/18 07:00 04/11/18 12:59 04/08/18 08:33 Carvedilol (Coreg) 25 mg EVERY 12 HOURS ORAL 04/07/18 09:00 05/04/18 20:59 04/08/18 08:48 Clonidine HCl (Catapres tab) 0.2 mg Q3H PRN ORAL For High Blood Pressure 04/06/18 23:45 05/06/18 14:44 04/08/18 06:29 Furosemide (Lasix) 40 mg DAILY ORAL 04/07/18 09:00 05/05/18 15:29 04/08/18 08:48 Hydralazine HCl (Apresoline) 25 mg Q8HR ORAL 04/07/18 22:00 05/07/18 21:59 04/08/18 06:29 Losartan Potassium (Cozaar) 50 mg EVERY 12 HOURS ORAL 04/07/18 09:00 05/06/18 20:59 04/08/18 08:49 Mirtazapine (Remeron) 7.5 mg QHS ORAL 04/07/18 21:00 05/05/18 20:59 Morphine Sulfate (Morphine Sulfate) 2 mg Q4H PRN IVP Moderate Pain (Pain Scale 4-6) 04/07/18 02:00 04/11/18 17:59 04/08/18 06:42 Ondansetron HCl (Zofran) 4 mg Q4H PRN IVP Nausea & Vomiting 04/07/18 02:00 05/04/18 17:59 Pantoprazole (Protonix) 40 mg DAILY ORAL 04/07/18 09:00 05/05/18 08:59 04/08/18 08:48 Promethazine HCl/ Codeine (Phenergan with Codeine) 5 ml Q4H PRN ORAL For Cough 04/06/18 23:15 05/06/18 11:13 04/08/18 06:28 Temazepam (Restoril) 15 mg HSPRN PRN ORAL Insomnia 04/07/18 21:00 04/11/18 20:59 04/07/18 21:05 Jeanna Andrade MD Apr 08, 2018 11:08
[2018-04-08] MEDS ORDERED: FUROSEMIDE40 MG ORAL (11:10)
[2018-04-08] MEDS ORDERED: HYDRALAZINE HCL25 M1 ORAL (11:10)
[2018-04-08] MEDS ORDERED: COZAAR50 MG ORAL (11:10)
[2018-04-08 11:54] VITALS: BP 144/102
--- NOTE | 2018-04-08 13:05 | Diagnostic Imaging Report ---
Indication: Shortness of breath Technique: XRAY Chest 1v Comparison: 04/05/2018 Findings: Stable cardiomegaly. Congestive changes/CHF again noted with interstitial opacification/edema and patchy perihilar airspace opacities. These findings are slightly increased compared to the prior exam. More focal opacification in the right lower lung may be related to an area of asymmetric edema versus infiltrate. No acute osseous abnormality. Impression: Cardiomegaly with findings suggestive of CHF/pulmonary edema, with interval worsening compared to exam of 04/04/2018. Somewhat more focal opacities in the right lower lung may be related to asymmetric edema, atelectasis and/or infiltrate. Correlation/follow-up recommended.
--- NOTE | 2018-04-08 15:22 | Cardiac Electrophysiology PN ---
Assessment/Plan Assessment/Plan 1.Congestive heart failure due to nonischemic cardiomyopathy, more than two years based on cardiac catheterization. EF is 15-20%. Coreg 25 mg b.i.d. Losartan 50 bid, Lasix and Aldactone 25 daily Likely needs ICD implant but patient undecided 2. Hypertension, on CHF meds. 3. Pneumonia, on ceftriaxone. 4. Crohn's disease, status post colectomy and colostomy. FU by Dr. Mccauley. ISMAEL RN Subjective Subjective No CP or SOB. DC in progress Objective Last 24 Hour Vital Signs Date Time Temp Pulse Resp B/P (MAP) Pulse Ox O2 Delivery O2 Flow Rate FiO2 04/08/18 13:16 73 20 97 Nasal Cannula 3.0 32 04/08/18 13:10 71 20 99 Nasal Cannula 3.0 32 04/08/18 11:54 97.6 65 20 144/102 (116) 94 97.6 04/08/18 09:37 Nasal Cannula 2.0 04/08/18 08:49 136/99 04/08/18 08:48 71 136/99 04/08/18 08:39 71 20 98 Nasal Cannula 3.0 32 04/08/18 08:31 Nasal Cannula 3.0 32 04/08/18 08:31 74 20 98 Nasal Cannula 3.0 32 04/08/18 08:31 98 Nasal Cannula 3.0 32 04/08/18 08:00 74 04/08/18 08:00 97.9 80 20 136/99 (111) 93 97.9 04/08/18 07:12 97.9 04/08/18 06:29 157/119 04/08/18 06:29 157/119 04/08/18 06:24 78 157/119 (132) 04/08/18 04:00 97.3 74 20 129/79 (96) 93 97.3 04/08/18 04:00 70 04/08/18 00:00 97.8 80 22 144/108 (120) 94 97.8 04/08/18 00:00 80 04/07/18 21:06 163/120 04/07/18 21:06 86 163/120 04/07/18 21:04 163/120 04/07/18 21:04 163/120 04/07/18 21:00 Nasal Cannula 2.0 04/07/18 20:00 85 9/23/18 20:00 97.9 86 24 163/120 (134) 97 97.9 04/07/18 19:46 92 20 96 Nasal Cannula 3.0 32 04/07/18 19:45 Nasal Cannula 3.0 32 04/07/18 19:44 93 Nasal Cannula 3.0 32 04/07/18 19:35 90 20 93 Nasal Cannula 3.0 32 04/07/18 17:34 99.3 04/07/18 16:03 99.3 76 20 161/122 (135) 100 99.3 04/07/18 16:00 78 Intake and Output 04/07/18 04/08/18 19:00 07:00 Intake Total 720 ml 200 ml Output Total 500 ml Balance 220 ml 200 ml Intake Oral 720 ml 200 ml Output Urine Total 500 ml # Voids 2 2 Laboratory Tests Test 04/08/18 06:15 White Blood Count 6.1 K/UL (4.8-10.8) Red Blood Count 3.38 M/UL (4.20-5.40) L Hemoglobin 8.6 G/DL (12.0-16.0) L Hematocrit 28.4 % (37.0-47.0) L Mean Corpuscular Volume 84 FL (80-99) Mean Corpuscular Hemoglobin 25.6 PG (27.0-31.0) L Mean Corpuscular Hemoglobin Concent 30.5 G/DL (32.0-36.0) L Red Cell Distribution Width 16.4 % (11.6-14.8) H Platelet Count 195 K/UL (150-450) Mean Platelet Volume 7.1 FL (6.5-10.1) Neutrophils (%) (Auto) 63.9 % (45.0-75.0) Lymphocytes (%) (Auto) 26.4 % (20.0-45.0) Monocytes (%) (Auto) 6.7 % (1.0-10.0) Eosinophils (%) (Auto) 2.4 % (0.0-3.0) Basophils (%) (Auto) 0.6 % (0.0-2.0) Sodium Level 139 MMOL/L (136-145) Potassium Level 3.6 MMOL/L (3.5-5.1) Chloride Level 104 MMOL/L (98-107) Carbon Dioxide Level 28 MMOL/L (21-32) Anion Gap 7 mmol/L (5-15) Blood Urea Nitrogen 36 mg/dL (7-18) H Creatinine 2.4 MG/DL (0.55-1.30) H Estimat Glomerular Filtration Rate 26.1 mL/min (>60) Glucose Level 88 MG/DL (74-106) Calcium Level 8.0 MG/DL (8.5-10.1) L Phosphorus Level 3.5 MG/DL (2.5-4.9) Magnesium Level 2.0 MG/DL (1.8-2.4) Objective HEAD AND NECK: Showed no JVD. LUNGS: Clear. CARDIOVASCULAR: Shows regular S1 and S2 with no gallop or murmur. ABDOMEN: Soft, nontender, status post colostomy, and incisional hernia. EXTREMITIES: No pitting edema. Kev Wall MD Apr 08, 2018 15:22
--- NOTE | 2018-04-08 15:45 | Diagnostic Imaging Report ---
Indication: Shortness of breath Technique: XRAY Chest 1v Comparison: 04/07/2018 FINDINGS/IMPRESSION: Stable cardiomegaly. There is continued slight interval worsening of interstitial and bilateral prominent perihilar airspace opacities concerning for worsening CHF. A more focal opacification in the right lower lung is again noted, concerning for an area of asymmetric edema or pneumonia. There is no pneumothorax. Osseous structures stable.
--- NOTE | 2018-04-08 17:01 | Internal Med Progress Note ---
Subjective Physician Name Buddy Arceo Attending Physician Buddy Arceo MD Allergies: Coded Allergies: SULFA (SULFONAMIDE ANTIBIOTICS) (Verified Allergy, Severe, 04/04/18) Subjective awake, alert, responsive, improving SOB, No CP, Objective Last Vital Signs Date Time Temp Pulse Resp B/P (MAP) Pulse Ox O2 Delivery O2 Flow Rate FiO2 04/08/18 13:16 73 20 97 Nasal Cannula 3.0 32 04/08/18 11:54 97.6 144/102 (116) 97.6 Laboratory Tests Test 04/08/18 06:15 White Blood Count 6.1 K/UL (4.8-10.8) Red Blood Count 3.38 M/UL (4.20-5.40) L Hemoglobin 8.6 G/DL (12.0-16.0) L Hematocrit 28.4 % (37.0-47.0) L Mean Corpuscular Volume 84 FL (80-99) Mean Corpuscular Hemoglobin 25.6 PG (27.0-31.0) L Mean Corpuscular Hemoglobin Concent 30.5 G/DL (32.0-36.0) L Red Cell Distribution Width 16.4 % (11.6-14.8) H Platelet Count 195 K/UL (150-450) Mean Platelet Volume 7.1 FL (6.5-10.1) Neutrophils (%) (Auto) 63.9 % (45.0-75.0) Lymphocytes (%) (Auto) 26.4 % (20.0-45.0) Monocytes (%) (Auto) 6.7 % (1.0-10.0) Eosinophils (%) (Auto) 2.4 % (0.0-3.0) Basophils (%) (Auto) 0.6 % (0.0-2.0) Sodium Level 139 MMOL/L (136-145) Potassium Level 3.6 MMOL/L (3.5-5.1) Chloride Level 104 MMOL/L (98-107) Carbon Dioxide Level 28 MMOL/L (21-32) Anion Gap 7 mmol/L (5-15) Blood Urea Nitrogen 36 mg/dL (7-18) H Creatinine 2.4 MG/DL (0.55-1.30) H Estimat Glomerular Filtration Rate 26.1 mL/min (>60) Glucose Level 88 MG/DL (74-106) Calcium Level 8.0 MG/DL (8.5-10.1) L Phosphorus Level 3.5 MG/DL (2.5-4.9) Magnesium Level 2.0 MG/DL (1.8-2.4) Intake and Output 04/07/18 04/08/18 19:00 07:00 Intake Total 720 ml 200 ml Output Total 500 ml Balance 220 ml 200 ml Intake Oral 720 ml 200 ml Output Urine Total 500 ml # Voids 2 2 Objective General: No acute distress, awake and alert HEENT: NCAT, sclera anicteric, PERRL, EOMI. Neck: Supple, no significant jugular venous distention, Lungs: Good inspiratory effort, decrease air on bases bilaterally, no Wheeze or Rales. Heart: Regular rate and rhythm, normal S1/S2, no murmurs Abdomen: soft, nontender, nondistended. Normoactive bowel sounds, mild obesity. / Rectal: Refused and deferred. Extremities: No Cyanosis , clubbing or edema. Neuro: A&O x 3, Able to move all extremities Skin: warm, no rashes or lesions Psych: Normal mood and affect Assessment/Plan Assessment/Plan 1. Right middle lobe pneumonia. 2. Incisional hernia. 3. Acute on chronic Congestive heart failure with systolic dysfunction, EFrEF. 4. Hypertension. 5. Crohn's disease. 6. Chronic Renal failure. 7. Severe cardiomyopathy. 2D Echo: Severe left ventricular enlargement. Severe global left ventricular hypokinesis. Left ventricular ejection fraction estimated to be 15-20 %. Mild left ventricular hypertrophy. Small posterior pericardial effusion. Moderate left atrial enlargement. Mild right atrial enlargement. Mild right ventricular enlargement. Mild focal aortic valve sclerosis with adequate cusp excursion. Mild aortic root dilatation. Thickened mitral valve leaflets with normal excursion. Mitral annulus and aortic root calcification. Pulmonic valve not well visualized. Normal tricuspid valve structure. IVC dilated at 3.0 cm without physiologic collapse suggestive of increased RA pressure. A color flow and spectral Doppler study was performed and revealed: Trace aortic regurgitation. Moderate posteriorly eccentric mitral regurgitation. Mitral diastolic velocities suggest reduced left ventricular relaxation c/w mild LV diastolic dysfunction (Grade I ). Moderate tricuspid regurgitation. Tricuspid systolic velocities suggests peak right ventricular systolic pressure of 43 mmHg, consistent with mild to moderate pulmonary hypertension. Pulmonic regurgitation present. TREATMENT: Abx: ceftriaxone and azithromycin. Pulmonary consultation with Dr. Jeanna Andrade. Lasix IV Monitor Labs Full code Heparin SQ DC Home today. Buddy Arceo MD Apr 08, 2018 17:01
--- NOTE | 2018-04-10 15:17 | Discharge Summary ---
Discharge Summary Discharge Summary _ DATE OF ADMISSION: 04/04/2018 DATE OF DISCHARGE: 2017 REASON FOR ADMISSION: 47 years old female with past medical history of Crohn disease, status post colectomy with colostomy placement, hypertension, congestive heart rate, incisional hernia, presented with chief complaint of cough and hernia. Patient reported fever and chills for 2 days. Patient reported productive cough with yellow sputum production. Patient also reported shortness of breath while coughing. Patient initially presented to [facility] emergency room . Chest x-ray in [place] revealed right middle lobe pneumonia. Laboratory workup revealed evidence of renal failure Urinalysis with evidence of UTI. Patient subsequently admitted to [facility] for further management with diagnoses of right middle lobe pneumonia , incisional ventral hernia, renal failure, hypertension congestive heart failure, Crohn disease. CONSULTANTS: hospice nurse Dr. Wall pulmonary Dr. Andrade ID specialist Dr. Vega surgery Dr. Mccauley psychiatrist [facility]RSE: Patient admitted to telemetry floor. Patient started on empiric antibiotic. Supplemental oxygen provided to keep pulse oximetry above 92%. Pulmonary toilet provided around the clock and as needed. Antitussive provided as needed. Follow-up chest x-ray revealed focal opacification in the right lower lung concerning for asymmetric edema versus pneumonia, no pneumothorax. ID specialist followed. Patient will need to complete 7 days of azithromycin as per infectious disease specialist recommendations. Urinalysis was positive for UTI, and urine culture revealed Enterococcus and Pseudomonas with a small colony count. Patient was asymptomatic, no urinary complaints. Infectious disease specialist stopped antibiotic for UTI. DVT prophylaxis provided. Renal ultrasound revealed evidence of probable medical renal disease and mild right hydronephrosis. Renal parameters and electrolytes were closely monitored. Electrolytes were replaced as needed. Nephrotoxins were avoided. [employer] closely followed. Echocardiogram revealed ejection fraction of 15-20%, moderate mitral regurgitation and right ventricular systolic pressure of 43, consistent with moderate pulmonary hypertension. Anti-failure regimen provided with diuretic Lasix/Aldactone, beta shashi and ARB. Volumes and cardiorenal parameters were closely monitored. Per hospice nurse, patient was euvolemic upon discharge. Blood pressure was managed with calcium channel shashi and beta shashi. Blood pressure stabilized. Clonidine was on board as needed. Colostomy care provided. GI prophylaxis provided. Pain management was addressed, and pain was controlled. Patient was working with physical and occupational therapists. Surgeon seen the patient for incisional ventral hernia. According to surgeon, hernia reducible and can be repaired electively it remains reducible. Supportive care provided . Patient was stable for discharge FINAL DIAGNOSES: Right lower lobe pneumonia Acute on chronic congestive heart failure with systolic dysfunction/rEF Nonischemic cardiomyopathy with ejection fraction 15-20% Hypertensive urgency Moderate mitral regurgitation Moderate pulmonary hypertension Chronic renal failure Hypokalemia Anemia Crohn's disease Status post colostomy Incisional ventral hernia Anxiety DISCHARGE MEDICATIONS: See Medication Reconciliation list. DISCHARGE INSTRUCTIONS: Patient was discharged home . Follow up with primary care provider in one week. Kerri De La Vega NP Apr 10, 2018 15:17
== END 2018-04-08 15:15 | disposition home or self-care (01) | DRG 193 ==
LOC: 4E 14:20 → 2E 04-06 22:09
DX: J18.9 Pneumonia, unspecified organism (principal); I50.23 Acute on chronic systolic (congestive) heart failure; K50.90 Crohn's disease, unspecified, without complications; I42.8 Other cardiomyopathies; I13.0 Hypertensive heart and chronic kidney disease with heart failure and stage 1 through stage 4 chronic kidney disease, or unspecified chronic kidney disease; K43.2 Incisional hernia without obstruction or gangrene; I16.0 Hypertensive urgency; I34.0 Nonrheumatic mitral (valve) insufficiency; I27.20 Pulmonary hypertension, unspecified; N18.9 Chronic kidney disease, unspecified; E87.6 Hypokalemia; D64.9 Anemia, unspecified; Z43.3 Encounter for attention to colostomy; F41.9 Anxiety disorder, unspecified; Z88.2 Allergy status to sulfonamides; G47.00 Insomnia, unspecified; F17.200 Nicotine dependence, unspecified, uncomplicated
CPT/HCPCS: 36415; 71045; 76770; 80048; 80053; 80061; 80202; 81001; 81003; 82270; 82378; 82550; 82607; 82746; 83540; 83550; 83615; 83735; 83880; 84100; 84133; 84300; 84550; 85007; 85025; 85044; 85060; 85610; 85651; 85730; 87086; 87181; 89050; 93306; 94640; 94664; 94760; J7620; J8499